=== PATIENT | male | born 1955 | race Caucasian/White ===

== ENCOUNTER 2021-05-14 12:42 | Inpatient (IN) ==
--- NOTE | 2021-05-14 13:25 | Emergency Department Note ---
Impression & Plan Acute renal failure, Acute uremia ADMIT ED Provider Note HPI: The patient is a 66-year-old gentleman with history of chronic kidney disease, presents the emergency department today with multiple complaints. Patient states that he has felt ill recently, states this has been worsening over the past several days. States he has had some sinus congestion and relatively c onsistent epistaxis over the past several days. He arrives with some cotton packing in his nose that is not blood-tinged. States he has had this in place and he has not had any active bleeding over the past several hours. Patient also states that he has had some worsening venous stasis type changes to the bilateral lower extremities, states that he feels weak. Patient is hemodynamically stable on arrival, he is otherwise in no acute distress. ROS: -General: Generalized weakness -HEENT: Recent epistaxis *10 point review systems was conducted and is otherwise negative unless stated above *Outpatient medications and allergy history reviewed PE: General: Alert, NAD HEENT: Normocephalic, atraumatic patient has cotton packing in the bilateral nares without any active bleeding there is no blood in the posterior oropharynx Eyes: Extraocular eye movement is intact, no scleral erythema Pulmonary: Clear to auscultation bilaterally, no wheezing Cardio: Regular rate and rhythm GI: Abdomen is soft, nontender : No suprapubic tenderness MSK: No evidence of trauma or malformation of the extremities, no edema palpable fistula in the left upper extremity near the left wrist with thrill Skin: No evidence of rash Neuro: Alert, no focal deficits 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 IV was established, lab work obtained that shows evidence of end-stage renal disease, patient's creatinine is in, BUN of 176, potassium is within normal limits at 4.5. EKG does not show any evidence of peaked T waves. I discussed the above findings with the patient and his at the bedside, they state that he did have a fistula placed in his left upper extremity in October in preparation for dialysis but he has not had close follow-up with his providers in the [facility] recently. I do think at this point the patient needs to initiate dialysis given his uremia and elevated creatinine in addition to his metabolic acidosis with a bicarbonate level of 7, I discussed the above findings with on-call nephrology, Dr. Dodd, he was in agreement for consultation, recommends placing the patient on a bicarbonate drip, dialysis nurse will evaluate the fistula to determine whether or not it is appropriate for access at this point. I discussed the above findings with the on-call hospitalist, Dr. Sharma, who accepted the patient to a telemetry bed for further care as well as nephrology consultation dialysis. Patient was in agreement to the above plan as was his at the bedside, patient was admitted in stable condition. He was placed on a bicarb drip at the advice of nephrology prior to admission. Critical care time: 35 minutes -Initiation of sodium bicarbonate drip for severe metabolic acidosis/end-stage kidney disease, time spent at the bedside, discussion with other physicians, arrangement of admission Diagnosis: 1. Uremia 2. Metabolic acidosis 3. Acute on chronic kidney failure, elevated creatinine 4. Generalized weakness Disposition: Admission Maynor Hwang DO Emergency Medicine Past Med/Surg History Medical History (Updated 05/14/21 @ 17:35 by Maynor Hwang DO) CKD (chronic kidney disease) Essential hypertension Macular degeneration Type 2 diabetes mellitus Surgical History (Updated 05/14/21 @ 17:30 by Giovanni Sharma) S/P arteriovenous (AV) fistula creation 10/2021 S/P rotator cuff repair LEFT shoulder Family History (Updated 05/14/21 @ 17:30 by Giovanni Sharma) Father Prostate cancer Sister Coronary heart disease Mother Breast cancer Social History (Updated 05/14/21 @ 17:31 by Giovanni Sharma) Smoking Status: Never smoker Hx Alcohol Use: Yes (stopped total consumption 2020) Alcohol type: beer Preferred Language: [place]er marital status: marital status details: 2 marriages Current Living Situation: Spouse current occupational status: retired current occupation: [employer] How many Children do You have: 1 Feels Safe at Home: Yes Allergies Allergies Allergy/AdvReac Type Severity Reaction Status Date / Time No Known Allergies Allergy Unverified 05/14/21 15:28 Home Meds Home Medications Medication Instructions Recorded Confirmed ascorbic acid (vitamin C) 1,000 mg 1 g PO DAILY 05/14/21 05/14/21 tablet aspirin 81 mg chewable tablet 81 mg PO DAILY 05/14/21 05/14/21 atorvastatin 40 mg tablet 40 mg PO DAILY 05/14/21 05/14/21 carvedilol 12.5 mg tablet 12.5 mg PO BID 05/14/21 05/14/21 cholecalciferol (vitamin D3) 125 125 mcg PO DAILY 05/14/21 05/14/21 mcg (5,000 unit) tablet clonidine HCl 0.1 mg tablet 0.1 mg PO TID 05/14/21 05/14/21 epoetin ned 10,000 unit/mL 10,000 unit SUBCUT WK 05/14/21 05/14/21 injection solution (Procrit) furosemide 40 mg tablet 40 mg PO QAM 05/14/21 05/14/21 glimepiride 2 mg tablet 2 mg PO AMPM 05/14/21 05/14/21 mecobalamin (vitamin B12) 1,000 2,500 mcg PO DAILY 05/14/21 05/14/21 mcg chewable tablet (B12 Active) metolazone 5 mg tablet 5 mg PO DAILY 05/14/21 05/14/21 milk thistle 175 mg tablet 175 mg PO DAILY 05/14/21 05/14/21 multivitamin (Multiple Vitamins) 1 tab PO DAILY 05/14/21 05/14/21 multivitamin with minerals 1 tab PO DAILY 05/14/21 05/14/21 patiromer calcium sorbitex 8.4 8.4 g PO DAILY 05/14/21 05/14/21 gram oral powder packet (Veltassa) pyridoxine (vitamin B6) 100 mg 100 mg PO DAILY 05/14/21 05/14/21 tablet (Vitamin B-6) sitagliptin 50 mg tablet (Januvia) 50 mg PO DAILY 05/14/21 05/14/21 sodium zirconium cyclosilicate 10 10 g PO QPM 05/14/21 05/14/21 gram oral powder packet (Lokelma) zinc 50 mg tablet 50 mg PO DAILY 05/14/21 05/14/21 Results & Data (ED) Vital Signs Vital Signs - 24 hr 05/14/21 12:45 05/14/21 15:30 05/14/21 16:29 Temperature 36.5 C Temperature Source Oral Pulse Rate 75 86 Pulse Rate [Right Finger] 76 Respiratory Rate 16 20 20 Blood Pressure 156/80 H Blood Pressure [Right Arm] 172/84 H Blood Pressure Mean 105 Blood Pressure Mean [Right Arm] 113 Blood Pressure Position [Right Arm] Sitting Pulse Oximetry 99 98 98 Oxygen Delivery Method Room Air Room Air Sepsis Recent Fever Within 48 Hours No Sepsis New/Unexplained Change in Mental Status No Sepsis Action Taken by Nursing No Action Required 05/14/21 17:25 Temperature Temperature Source Pulse Rate Pulse Rate [Right Finger] 74 Respiratory Rate 20 Blood Pressure Blood Pressure [Right Arm] 178/87 H Blood Pressure Mean Blood Pressure Mean [Right Arm] 117 Blood Pressure Position [Right Arm] Sitting Pulse Oximetry 98 Oxygen Delivery Method Room Air Sepsis Recent Fever Within 48 Hours Sepsis New/Unexplained Change in Mental Status Sepsis Action Taken by Nursing Laboratory Data Result diagrams: 05/14/21 14:28 05/14/21 14:28 Lab Results 05/14/21 05/14/21 05/14/21 Range/Units 14:28 14:28 14:28 WBC 9.01 (4.8-10.8) K/uL RBC 4.23 L (4.7-6.1) M/uL Hgb 11.1 L (14.0-18.0) g/dL Hct 33.9 L (42-52) % MCV 80.1 (80-100) fL MCH 26.2 (25-34) pg MCHC 32.7 (32-36) g/dL RDW Std Deviation 48.2 H (36.4-46.3) fL RDW Coeff of Adriano 16.5 H (11.5-14.5) % Plt Count 113 L (130-400) K/uL MPV 8.7 (7.4-10.4) fL Immature Gran % (Auto) 0.4 % Neut % (Auto) 86.7 % Lymph % (Auto) 8.0 % [place] % (Auto) 3.7 % Eos % (Auto) 1.1 % Baso % (Auto) 0.1 % Neut # (Auto) 7.81 H (1.4-6.5) K/uL Lymph # (Auto) 0.72 L (1.2-3.4) K/uL [place] # (Auto) 0.33 (0.11-0.59) K/uL Eos # (Auto) 0.10 (0-0.5) K/uL Baso # (Auto) 0.01 (0-0.2) K/uL Immature Gran # (Auto) 0.04 H (0.00-0.02) K/uL Platelet Estimate Decreased L (Normal) Ovalocytes 1+ Echinocytes 1+ PT 12.4 H (9.0-12.0) Seconds INR 1.2 H (0.9-1.1) APTT 35.0 H (21.0-31.0) Seconds PTT Ratio 1.3 VBG pH (7.36-7.41) VBG pCO2 (38-50) mmHg VBG pO2 mmHg VBG HCO3 mmol/L VBG O2 Saturation % VBG Base Excess mEq/L Barometric Pressure mm/Hg Sodium 138 (136-145) mmol/L Potassium 4.5 (3.5-5.1) mmol/L Chloride 110 H (98-107) mmol/L Carbon Dioxide 7 L* (21-32) mmol/L Anion Gap 21 H (3-11) BUN 176 H (6-23) mg/dl Creatinine 9.68 H* (0.6-1.4) mg/dl Est Cr Clr Drug Dosing 9.9 ml/min Est GFR ( Amer) 5.9 ml/min Est GFR (Non-Af Amer) 5.1 ml/min BUN/Creatinine Ratio 18.2 (10-20) Glucose 49 L* (70-99(Fasting)) mg/dl Calcium 6.7 L (8.5-10.1) mg/dl Total Bilirubin 0.4 (0.2-1.0) mg/dl AST 18 (13-39) U/L ALT 36 (7-52) U/L Alkaline Phosphatase 108 H (34-104) U/L Troponin I 0.06 H* (0-0.04) ng/ml Total Protein 6.5 (6.0-8.3) gm/dl Albumin 3.9 (3.4-5.0) gm/dl Globulin 2.6 (2.5-4.0) gm/dl Albumin/Globulin Ratio 1.5 (0.9-2) Lipase 471 H (11-82) U/L Urine Color Urine Appearance (Clear) Urine pH (4.5-7.5) Ur Specific [place] (1.000-1.030) Urine Protein (Negative) Urine Glucose (UA) (Negative) Urine Ketones (Negative) Urine Blood (Negative) Urine Nitrite (Negative) Urine Bilirubin (Negative) Urine Urobilinogen (Negative) Ur Leukocyte Esterase (Negative) Urine WBC (Auto) (0-5) /hpf Urine RBC (Auto) (0-4) /hpf U Hyaline Cast (Auto) (0-5) /lpf U Epithel Cells (Auto) (0-5) /lpf Urine Bacteria (Auto) (Negative) Urine Yeast 05/14/21 05/14/21 Range/Units 15:47 16:31 WBC (4.8-10.8) K/uL RBC (4.7-6.1) M/uL Hgb (14.0-18.0) g/dL Hct (42-52) % MCV (80-100) fL MCH (25-34) pg MCHC (32-36) g/dL RDW Std Deviation (36.4-46.3) fL RDW Coeff of Adriano (11.5-14.5) % Plt Count (130-400) K/uL MPV (7.4-10.4) fL Immature Gran % (Auto) % Neut % (Auto) % Lymph % (Auto) % [place] % (Auto) % Eos % (Auto) % Baso % (Auto) % Neut # (Auto) (1.4-6.5) K/uL Lymph # (Auto) (1.2-3.4) K/uL [place] # (Auto) (0.11-0.59) K/uL Eos # (Auto) (0-0.5) K/uL Baso # (Auto) (0-0.2) K/uL Immature Gran # (Auto) (0.00-0.02) K/uL Platelet Estimate (Normal) Ovalocytes Echinocytes PT (9.0-12.0) Seconds INR (0.9-1.1) APTT (21.0-31.0) Seconds PTT Ratio VBG pH 7.11 L (7.36-7.41) VBG pCO2 24 L (38-50) mmHg VBG pO2 84 mmHg VBG HCO3 8 mmol/L VBG O2 Saturation 94.4 % VBG Base Excess -20.4 mEq/L Barometric Pressure 734.6 mm/Hg Sodium (136-145) mmol/L Potassium (3.5-5.1) mmol/L Chloride (98-107) mmol/L Carbon Dioxide (21-32) mmol/L Anion Gap (3-11) BUN (6-23) mg/dl Creatinine (0.6-1.4) mg/dl Est Cr Clr Drug Dosing ml/min Est GFR ( Amer) ml/min Est GFR (Non-Af Amer) ml/min BUN/Creatinine Ratio (10-20) Glucose (70-99(Fasting)) mg/dl Calcium (8.5-10.1) mg/dl Total Bilirubin (0.2-1.0) mg/dl AST (13-39) U/L ALT (7-52) U/L Alkaline Phosphatase (34-104) U/L Troponin I (0-0.04) ng/ml Total Protein (6.0-8.3) gm/dl Albumin (3.4-5.0) gm/dl Globulin (2.5-4.0) gm/dl Albumin/Globulin Ratio (0.9-2) Lipase (11-82) U/L Urine Color Yellow Urine Appearance Clear (Clear) Urine pH 5.0 (4.5-7.5) Ur Specific [place] 1.014 (1.000-1.030) Urine Protein 3+ H (Negative) Urine Glucose (UA) Negative (Negative) Urine Ketones Negative (Negative) Urine Blood 1+ H (Negative) Urine Nitrite Negative (Negative) Urine Bilirubin Negative (Negative) Urine Urobilinogen Negative (Negative) Ur Leukocyte Esterase Negative (Negative) Urine WBC (Auto) 5-10 H (0-5) /hpf Urine RBC (Auto) 0-4 (0-4) /hpf U Hyaline Cast (Auto) 1-5 (0-5) /lpf U Epithel Cells (Auto) >30 H (0-5) /lpf Urine Bacteria (Auto) Negative (Negative) Urine Yeast Not Reportable Administered Medications Sodium Bicarbonate 150 meq/ (Dextrose) 1,150 mls @ 100 mls/hr IV .[id number] PRASHANTH Stop: 06/13/21 16:14 Last Admin: 05/14/21 16:23 Dose: 100 mls/hr Documented by: [id number] Discontinued Medications Miscellaneous (Stat Iv) 1 ea N/A NOW STA Stop: 05/14/21 15:50 Last Admin: 05/14/21 16:23 Dose: Not Given Documented by: [id number] Miscellaneous (Stat Iv) 1 ea N/A NOW STA Stop: 05/14/21 16:02 Last Admin: 05/14/21 16:23 Dose: Not Given Documented by: [id number] Imaging Data Radiologist's Impression: Chest X-Ray 05/14/21 13:23 XR chest 1V portable CLINICAL HISTORY: Atypical chest pain . Shortness of breath COMPARISON STUDY: No previous studies for comparison. FINDINGS: Lung volumes are normal. No pneumothorax or pleural effusion is present. Moderate cardiomegaly is noted without evidence for pulmonary edema. No consolidation is present. Faint calcifications project over the bilateral axilla. IMPRESSION: No acute cardiopulmonary findings. Cardiomegaly. ACT 112: Negative or not required by law. Electronically signed by: Alex Lees M.D. 05/14/2021 1:44 PM Discharge Plan Visit Data Chief Complaint: Illness Stated Complaint: NOSE BLEED, PAIN ON INSIDE OF THIGH,DIAHERRA, WEAK ED Provider: Maynor Hwang Discharge Problem: Acute renal failure, Acute uremia Forms Stand Alone Forms: My [facility] Prescriptions Prescriptions: No Action Lokelma 10 gram powder in packet 10 g PO QPM RF: 0 Januvia 50 mg tablet 50 mg PO DAILY RF: 0 glimepiride 2 mg tablet 2 mg PO AMPM RF: 0 furosemide 40 mg tablet 40 mg PO QAM RF: 0 atorvastatin 40 mg tablet 40 mg PO DAILY RF: 0 clonidine HCl 0.1 mg tablet 0.1 mg PO TID RF: 0 carvedilol 12.5 mg tablet 12.5 mg PO BID RF: 0 multivitamin [Multiple Vitamins] Tablet 1 tab PO DAILY RF: 0 Vision Multivitamin Tablet 1 tab PO DAILY RF: 0 pyridoxine (vitamin B6) [Vitamin B-6] 100 mg Tablet 100 mg PO DAILY RF: 0 B12 Active 1,000 mcg Tablet,Chewable 2,500 mcg PO DAILY RF: 0 ascorbic acid (vitamin C) 1,000 mg Tablet 1 g PO DAILY RF: 0 Procrit 10,000 unit/mL solution 10,000 unit subcut WK RF: 0 aspirin [[facility] Aspirin] 81 mg Tablet,Chewable 81 mg PO DAILY RF: 0 cholecalciferol (vitamin D3) 125 mcg (5,000 unit) Tablet 125 mcg PO DAILY RF: 0 milk thistle 175 mg Tablet 175 mg PO DAILY RF: 0 zinc 50 mg Tablet 50 mg PO DAILY RF: 0 Veltassa 8.4 gram powder in packet 8.4 g PO DAILY RF: 0 metolazone 5 mg tablet 5 mg PO DAILY RF: 0 Referrals Referrals: PCP,NO [Primary Care Provider] - Discharge Problem: Acute renal failure Qualifiers: Acute renal failure type: unspecified Qualified Code(s): N17.9 - Acute kidney failure, unspecified
--- NOTE | 2021-05-14 13:46 | XRay Report ---
XR chest 1V portable CLINICAL HISTORY: Atypical chest pain . Shortness of breath COMPARISON STUDY: No previous studies for comparison. FINDINGS: Lung volumes are normal. No pneumothorax or pleural effusion is present. Moderate cardiomeg leticia is noted without evidence for pulmonary edema. No consolidation is present. Faint calcifications project over the bilateral axilla. IMPRESSION: No acute cardiopulmonary findings. Cardiomegaly. ACT 112: Negative or not required by law. Electronically signed by: Alex Lees M.D. 05/14/2021 1:44 PM
[2021-05-14 14:39] LABS: Mean Corpuscular Hgb Conc 32.7 g/dL (32-36)
[2021-05-14 14:48] LABS: Hematocrit (blood only) 33.9 % (42-52); Hemoglobin 11.1 g/dL (14.0-18.0); Mean Corpuscular Hemoglobin 26.2 pg (25-34); Mean Corpuscular Volume 80.1 fL (80-100); RDW Coefficient of Variation 16.5 % (11.5-14.5); RDW Standard Deviation 48.2 fL (36.4-46.3); Red Blood Count 4.23 M/uL (4.7-6.1); White Blood Count 9.01 K/uL (4.8-10.8)
[2021-05-14 14:50] LABS: INR 1.2 (0.9-1.1); Partial Thromboplastin Ratio 1.3; Prothrombin Time 12.4 Seconds (9.0-12.0)
[2021-05-14 14:53] LABS: Basophils # (auto) 0.01 K/uL (0-0.2); Basophils % (auto) 0.1 %; Echinocytes 1+; Eosinophils % (auto) 1.1 %; Immature Granulocytes # (auto) 0.04 K/uL (0.00-0.02); Immature Granulocytes % (auto) 0.4 %; Lymphocytes # (auto) 0.72 K/uL (1.2-3.4); Mean Platelet Volume 8.7 fL (7.4-10.4); Monocytes # (auto) 0.33 K/uL (0.11-0.59); Monocytes % (auto) 3.7 %; Neutrophils # (auto) 7.81 K/uL (1.4-6.5); Neutrophils % (auto) 86.7 %; Ovalocytes 1+; Platelet Count 113 K/uL (130-400); Platelet Estimate Decreased (Normal)
[2021-05-14 15:15] LABS: Albumin Globulin Ratio 1.5 (0.9-2); Albumin Level 3.9 gm/dl (3.4-5.0); BUN Creatinine Ratio 18.2 (10-20); Bilirubin,Total 0.4 mg/dl (0.2-1.0); Calcium 6.7 mg/dl (8.5-10.1); Creatinine Clr Calc Pharmacy 9.9 ml/min; Est GFR (African American) 5.9 ml/min; Est GFR (Non-African American) 5.1 ml/min; Globulin 2.6 gm/dl (2.5-4.0); Potassium 4.5 mmol/L (3.5-5.1); Total Protein 6.5 gm/dl (6.0-8.3); Troponin I 0.06 ng/ml (0-0.04)
[2021-05-14] MEDS ORDERED: STAT IV STA ×2 (15:49→16:01)
[2021-05-14] MEDS ORDERED: SODIUM BICARBONATE 8.4% 150 MEQ in DEXTROSE 5% 1,000 ML IV SCH ×2 (16:00→16:15)
[2021-05-14 16:03] LABS: Base Excess VBG -20.4 mEq/L; Oxygen Saturation VBG 94.4 %; pH VBG 7.11 (7.36-7.41)
--- NOTE | 2021-05-14 16:26 | History & Physical Report ---
Date of Service May 14, 2021 Assessment & Plan (1) Acute uremia: Plan: severe uremia with resulting metabolic acidosis. fortunately patient has AV fistula in the left arm, created 10/2020. appreciate Dr Dodd's consultation and recs. dialysis staff were able to cannulate the fistula, and an HD session of 2 hours will be attempted this evening. if the session gets cut short or there are technical issues - start IV bicarbonate infusion, and consult vascular surgery in am for permcath placement. however, the hope is that the fistula is mature and will allow HD to go smoothly. he will need serial sessions of HD given the severity of his uremia. BMP am. (2) Metabolic acidosis: Plan: 2nd to acute/chronic CKD with development of ESRD. see #1 above. (3) ESRD needing dialysis: Plan: see #1 above. (4) CKD (chronic kidney disease): Plan: suspect he had stage 4 or 5 before moving from the [facility] to [place]. either way will initiate HD tonight as stated in #1 above. CKD is likely on the basis of diabetic nephropathy and/or HTN nephrosclerosis given the 3+ protein on ua. appreciate nephrology assistance. (5) Type 2 diabetes mellitus: Plan: check a1c while here. was on 2 oral agents - sulfonylurea, and januvia. both contraindicated with his ESRD. stop both meds. check BSGs ac/hs. will likely need basal-bolus insulin. (6) Essential hypertension: Plan: uncontrolled, likely due to worsening CKD / development of ESRD. BPs should improve with serial HD sessions. in meantime continue all home meds. adjust them accordingly. (7) Edema: Plan: likely due to #1. given the mild erythema of his thighs and severe thigh edema check dopplers of both legs, r/o DVT. he may have an element of cellulitis as well - see below. (8) Bilateral thigh pain: Plan: check dopplers, r/o DVT. (9) Epistaxis: Plan: 2nd to "renal platelets?" INR is 1.2. quantitatively his platelet count is satisfactory. could simply be from dryness. bactroban ointment BID to both nares. saline spray frequently. follow carefully. (10) Thrombocytopenia: Plan: check TSH, B12, folate am cbc am (11) DVT prophylaxis: Plan: if epistaxis stops and does not recur - heparin 5000 BID (12) Cellulitis and abscess of leg: Plan: he may have early cellulitis. I am not fully certain, however, as he has chronic stasis changes as well of the legs. given the pain he is having will check dopplers AND cover for cellulitis with rocephin/daptomycin. repeat exam in am. Plan: extensively updated at bedside care d/w Dr Dodd, nephrology History of Present Illness Chief Complaint: weakness, nose bleeding, diarrhea, thigh pain Primary Care Provider: NO PCP Pleasant 66yo male with CKD (stage uncertain but likely advanced), LUE AV fistula creation in 10/2020 in [place], [place], T2DM since 2003 on oral meds, and HTN presents with progressive weakness, several days of b/l nosebleeding, worsening edema with b/l thigh pain L>R, mild redness of both thighs also L>R, and a few episodes of diarrhea over the last 1-2 weeks. 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 The patient himself is retired from [employer] in the [facility]. Patient and his report worsening dyspnea, dyspnea on exertion, and fatigue over the last several weeks. He admits to not checking his BSGs but states his last HbA1c in [place] was "good" per his recollection. Allergies Allergy/AdvReac Type Severity Reaction Status Date / Time No Known Allergies Allergy Unverified 05/14/21 15:28 Home Medications Medication Instructions Recorded Confirmed Type ascorbic acid (vitamin C) 1,000 mg 1 g PO DAILY 05/14/21 05/14/21 History tablet aspirin 81 mg chewable tablet 81 mg PO DAILY 05/14/21 05/14/21 History atorvastatin 40 mg tablet 40 mg PO DAILY 05/14/21 05/14/21 History carvedilol 12.5 mg tablet 12.5 mg PO BID 05/14/21 05/14/21 History cholecalciferol (vitamin D3) 125 125 mcg PO DAILY 05/14/21 05/14/21 History mcg (5,000 unit) tablet clonidine HCl 0.1 mg tablet 0.1 mg PO TID 05/14/21 05/14/21 History epoetin ned 10,000 unit/mL 10,000 unit SUBCUT WK 05/14/21 05/14/21 History injection solution (Procrit) furosemide 40 mg tablet 40 mg PO QAM 05/14/21 05/14/21 History glimepiride 2 mg tablet 2 mg PO AMPM 05/14/21 05/14/21 History mecobalamin (vitamin B12) 1,000 2,500 mcg PO DAILY 05/14/21 05/14/21 History mcg chewable tablet (B12 Active) metolazone 5 mg tablet 5 mg PO DAILY 05/14/21 History milk thistle 175 mg tablet 175 mg PO DAILY 05/14/21 05/14/21 History multivitamin (Multiple Vitamins) 1 tab PO DAILY 05/14/21 05/14/21 History multivitamin with minerals 1 tab PO DAILY 05/14/21 05/14/21 History patiromer calcium sorbitex 8.4 8.4 g PO DAILY 05/14/21 05/14/21 History gram oral powder packet (Veltassa) pyridoxine (vitamin B6) 100 mg 100 mg PO DAILY 05/14/21 05/14/21 History tablet (Vitamin B-6) sitagliptin 50 mg tablet (Januvia) 50 mg PO DAILY 05/14/21 05/14/21 History sodium zirconium cyclosilicate 10 10 g PO QPM 05/14/21 05/14/21 History gram oral powder packet (Lokelma) zinc 50 mg tablet 50 mg PO DAILY 05/14/21 05/14/21 History Past Med/Surg History Medical History CKD (chronic kidney disease) ESRD needing dialysis Essential hypertension Macular degeneration Type 2 diabetes mellitus Surgical History S/P arteriovenous (AV) fistula creation LU - 10/2021 S/P rotator cuff repair LEFT shoulder Family History Father Prostate cancer Sister Coronary heart disease Mother Breast cancer Social History (Updated 05/14/21 @ 23:14 by Giovanni Sharma) Smoking Status: Never smoker Second Hand Exposure: Yes; Do You Dip or Chew Tobacco: No; Tobacco Cessation Education Requested by Patient: No Hx Alcohol Use: Yes (none since 2020) Alcohol type: beer Hx Substance Use: No Preferred Language: [place] Islander Communication Ability: Effective Control Chemist Required: No Beliefs That Will Affect Care: None marital status: marital status details: 2 marriages Current Living Situation: Family current occupational status: retired current occupation: [employer] How many Children do You have: 1 other: lived in [facility], moved to [place] late 2020 Feels Safe at Home: Yes Assistive Devices: Glasses Assistive Devices Comment: OTC readers Review of Systems Review of Systems: gen - no fevers, no rigors - but does feel cold chronically "for years"; no loss of appetite; no significant change in weight eyes - injections in eyes for macular degeneration HENT - no dysphagia; no sore throat neck - no pain CV - no chest pain pulm - VENEGAS but no cough GI - no abd pain, no vomiting; but has had diarrhea for a few days - makes urine 3-4 times a day musculo - c/o pain in both thighs x 3-4 days skin - chronic stasis changes/erythema b/l shins; new erythema b/l inner thighs neuro - no headache psych - denies mood changes endo - long-time diabetic but not checking BSGs Physical Exam Physical Exam: gen - no acute distress, visibly dyspneic, seems oriented eyes - PERRL, lens implants b/l mouth - MMM HENT - NC/AT, nose with dried blood anterior nares b/l but no active bleeding neck - no JVD, no goiter heart - RRR, s1 s2, 1/6 ASTON LSB lungs - decreased BS bases, otherwise CTA b/l abd - soft NT ND BS+ vascular - left distal arm fistula with +bruit, +thrill; pulses b/l feet 2+ skin - venous stasis changes b/l legs on the shins; there is mild erythema b/l thighs medially; none of the erythematous areas are warm to touch; however, the thighs are tender to palpation; no lymphangitis; scattered abrasions/tiny ulcerations on toes b/l feet ext - 2-3+ edema both thighs, 1+ edema shins/ankles neuro - strength 5/5 x 4 extremities; there is atrophy of intrinsic muscles of the space between digits 1 and 2 of b/l hands Results & Data Results & Data ([facility]) Vital Signs (Past 12 Hours) Vital Signs Temp Pulse Pulse Resp BP BP Pulse Ox 05/14/21 15:30 76 20 172/84 H 98 05/14/21 12:45 36.5 C 75 16 156/80 H 99 Laboratory Results Laboratory Results - last 24 hr 05/14/21 05/14/21 05/14/21 14:28 14:28 14:28 WBC 9.01 RBC 4.23 L Hgb 11.1 L Hct 33.9 L MCV 80.1 MCH 26.2 MCHC 32.7 RDW Std Deviation 48.2 H RDW Coeff of Adriano 16.5 H Plt Count 113 L MPV 8.7 Immature Gran % (Auto) 0.4 Neut % (Auto) 86.7 Lymph % (Auto) 8.0 Coffee % (Auto) 3.7 Eos % (Auto) 1.1 Baso % (Auto) 0.1 Neut # (Auto) 7.81 H Lymph # (Auto) 0.72 L Coffee # (Auto) 0.33 Eos # (Auto) 0.10 Baso # (Auto) 0.01 Immature Gran # (Auto) 0.04 H Platelet Estimate Decreased L Ovalocytes 1+ Echinocytes 1+ PT 12.4 H INR 1.2 H APTT 35.0 H PTT Ratio 1.3 VBG pH VBG pCO2 VBG pO2 VBG HCO3 VBG O2 Saturation VBG Base Excess Barometric Pressure Sodium 138 Potassium 4.5 Chloride 110 H Carbon Dioxide 7 L* Anion Gap 21 H BUN 176 H Creatinine 9.68 H* Est Cr Clr Drug Dosing 9.9 Est GFR ( Amer) 5.9 Est GFR (Non-Af Amer) 5.1 BUN/Creatinine Ratio 18.2 Glucose 49 L* POC Glucose Calcium 6.7 L Total Bilirubin 0.4 AST 18 ALT 36 Alkaline Phosphatase 108 H Troponin I 0.06 H* Total Protein 6.5 Albumin 3.9 Globulin 2.6 Albumin/Globulin Ratio 1.5 Lipase 471 H Urine Color Urine Appearance Urine pH Ur Specific [place] Urine Protein Urine Glucose (UA) Urine Ketones Urine Blood Urine Nitrite Urine Bilirubin Urine Urobilinogen Ur Leukocyte Esterase Urine WBC (Auto) Urine RBC (Auto) U Hyaline Cast (Auto) U Epithel Cells (Auto) Urine Bacteria (Auto) Urine Yeast SARS-CoV-2, RNA, NAAT 05/14/21 05/14/21 05/14/21 15:47 16:31 17:34 WBC RBC Hgb Hct MCV MCH MCHC RDW Std Deviation RDW Coeff of Adriano Plt Count MPV Immature Gran % (Auto) Neut % (Auto) Lymph % (Auto) Coffee % (Auto) Eos % (Auto) Baso % (Auto) Neut # (Auto) Lymph # (Auto) Coffee # (Auto) Eos # (Auto) Baso # (Auto) Immature Gran # (Auto) Platelet Estimate Ovalocytes Echinocytes PT INR APTT PTT Ratio VBG pH 7.11 L VBG pCO2 24 L VBG pO2 84 VBG HCO3 8 VBG O2 Saturation 94.4 VBG Base Excess -20.4 Barometric Pressure 734.6 Sodium Potassium Chloride Carbon Dioxide Anion Gap BUN Creatinine Est Cr Clr Drug Dosing Est GFR ( Amer) Est GFR (Non-Af Amer) BUN/Creatinine Ratio Glucose POC Glucose Calcium Total Bilirubin AST ALT Alkaline Phosphatase Troponin I Total Protein Albumin Globulin Albumin/Globulin Ratio Lipase Urine Color Yellow Urine Appearance Clear Urine pH 5.0 Ur Specific [place] 1.014 Urine Protein 3+ H Urine Glucose (UA) Negative Urine Ketones Negative Urine Blood 1+ H Urine Nitrite Negative Urine Bilirubin Negative Urine Urobilinogen Negative Ur Leukocyte Esterase Negative Urine WBC (Auto) 5-10 H Urine RBC (Auto) 0-4 U Hyaline Cast (Auto) 1-5 U Epithel Cells (Auto) >30 H Urine Bacteria (Auto) Negative Urine Yeast Not Reportable SARS-CoV-2, RNA, NAAT NEGATIVE 05/14/21 19:32 WBC RBC Hgb Hct MCV MCH MCHC RDW Std Deviation RDW Coeff of Dariano Plt Count MPV Immature Gran % (Auto) Neut % (Auto) Lymph % (Auto) Coffee % (Auto) Eos % (Auto) Baso % (Auto) Neut # (Auto) Lymph # (Auto) Coffee # (Auto) Eos # (Auto) Baso # (Auto) Immature Gran # (Auto) Platelet Estimate Ovalocytes Echinocytes PT INR APTT PTT Ratio VBG pH VBG pCO2 VBG pO2 VBG HCO3 VBG O2 Saturation VBG Base Excess Barometric Pressure Sodium Potassium Chloride Carbon Dioxide Anion Gap BUN Creatinine Est Cr Clr Drug Dosing Est GFR ( Amer) Est GFR (Non-Af Amer) BUN/Creatinine Ratio Glucose POC Glucose 129 H Calcium Total Bilirubin AST ALT Alkaline Phosphatase Troponin I Total Protein Albumin Globulin Albumin/Globulin Ratio Lipase Urine Color Urine Appearance Urine pH Ur Specific [place] Urine Protein Urine Glucose (UA) Urine Ketones Urine Blood Urine Nitrite Urine Bilirubin Urine Urobilinogen Ur Leukocyte Esterase Urine WBC (Auto) Urine RBC (Auto) U Hyaline Cast (Auto) U Epithel Cells (Auto) Urine Bacteria (Auto) Urine Yeast SARS-CoV-2, RNA, NAAT Diagnostic Findings Chest X-Ray 05/14/21 13:23 XR chest 1V portable CLINICAL HISTORY: Atypical chest pain . Shortness of breath COMPARISON STUDY: No previous studies for comparison. FINDINGS: Lung volumes are normal. No pneumothorax or pleural effusion is present. Moderate cardiomegaly is noted without evidence for pulmonary edema. No consolidation is present. Faint calcifications project over the bilateral axilla. IMPRESSION: No acute cardiopulmonary findings. Cardiomegaly. ACT 112: Negative or not required by law. Electronically signed by: Alex Lees M.D. 05/14/2021 1:44 PM EKG - my reading - NSR, RBBB, leads III/AVF with inverted T waves; anterior T wave inversions especially V3,V4,V5 Code Status & VTE Plan Code Status full code PG Care Time/CCT Total # of Minutes Spent Total Time Spent with Patient: Total time spent is greater than 50% in coordination of care (as documented) at patient's floor/unit and/or counseling patient: Coding Level of Care Code 54307 Initial Inpt Care Lvl 3 Diagnoses Metabolic acidosis E87.2 Type 2 diabetes mellitus E11.9 CKD (chronic kidney disease) N18.9 Essential hypertension I10 Edema R60.9 Bilateral thigh pain M79.651; M79.652 Epistaxis R04.0 ESRD needing dialysis N18.6; Z99.2 Acute uremia N19 Thrombocytopenia D69.6 DVT prophylaxis Z29.9 Cellulitis and abscess of leg L03.119; L02.419
[2021-05-14 17:07] LABS: Appearance Urine Clear (Clear); Bacteria Urine Automated Negative (Negative); Bilirubin Urine Negative (Negative); Blood Urine 1+ (Negative); Color Urine Yellow; Epithelial Cell Urine Auto >30 /lpf (0-5); Glucose Urine UA Negative (Negative); Ketones Urine Negative (Negative); Leukocyte Esterase Urine Negative (Negative); Nitrite Urine Negative (Negative); Protein Urine 3+ (Negative); RBC Urine Automated 0-4 /hpf (0-4); Specific Gravity Urine 1.014 (1.000-1.030); Urobilinogen Urine Negative (Negative)
[2021-05-14] MEDS ORDERED: SODIUM CHLORIDE 0.65% NA SOLN 45 ML (OCEAN) PRN (18:45)
[2021-05-14] MEDS ORDERED: SODIUM CHLORIDE 0.9% 1000ML 1,000 ML IV PRN (18:51)
[2021-05-14] MEDS: ACETAMINOPHEN 325 MG TAB PO PRN (20:10)
--- NOTE | 2021-05-14 20:15 | Nephrology Consultation ---
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 Has mature AVF but never had HD before as renal function was relatively stable during last nephrology visit few months ago. --start on HD urgently this evening with low blood flow considering significant AG metabolic acidosis and azotemia. Will slowly increase time, plan for 3 h tomorrow --check phos, may need to start on binder --no need for JAYLEN now --renal vitamin --low K diet --case management consult for out pt HD set up at [facility] --start on Amlodipine, 5 mg this evening and then continue 10 mg daily starting in am. Thank you for the consult. History of Present Illness Reason for Consultation: ESRD, gap metabolic acidosis, need to start on HD. Attending Physician: Giovanni Sharma History of Present Illness Mr. Ti Zee is a 66-year-old gentleman with PMH of advanced CKD, HTN, DM presented to ER with generalized weakness and epistaxis. Lab showed azotemia, acidosis and Nephrology was consulted for further management. EMR records were reviewrd in detail during visit. Krystal was at bedside. Bharat was originally from [facility] and recently moved to [place] to after recent chcf. He has h/o advanced CKD secondary to DM nephropathy, was following with Dr. Rosado is [facility]. Had left RC AVF placed in October 2020, now mature. He reports that he has been generally feeling weak, having pain in b/l thing area and has been having epistaxis over the past several days.He reports voiding normally, appetite decent, no significant N/V, anorexia. No SOB, CP, F/C, dysuria, hematuria.Has h/o hyperkalemia, was on Lasix, Metolazone, Lokelma. Lab showed Cr 9.8, BUN 176, bicarb 7 with AG, K 4.6, low calcium. Hb 11.1, has been on JAYLEN weekly, plt 116. BP has been high. H/O DM for almost 20 years, has high grade proteinuria. HTN for many years, currently poorly controlled, on Carvedilol, clonidine, lasix. No h/o CAD, CHF. Non smoker, quit alcohol in 2020. No f/h of CKD, ESRD. Retired, used to work at [employer]. Allergies Allergy/AdvReac Type Severity Reaction Status Date / Time No Known Allergies Allergy Unverified 05/14/21 15:28 Home Medications Medication Instructions Recorded Confirmed Type ascorbic acid (vitamin C) 1,000 mg 1 g PO DAILY 05/14/21 05/14/21 History tablet aspirin 81 mg chewable tablet 81 mg PO DAILY 05/14/21 05/14/21 History atorvastatin 40 mg tablet 40 mg PO DAILY 05/14/21 05/14/21 History carvedilol 12.5 mg tablet 12.5 mg PO BID 05/14/21 05/14/21 History cholecalciferol (vitamin D3) 125 125 mcg PO DAILY 05/14/21 05/14/21 History mcg (5,000 unit) tablet clonidine HCl 0.1 mg tablet 0.1 mg PO TID 05/14/21 05/14/21 History epoetin ned 10,000 unit/mL 10,000 unit SUBCUT WK 05/14/21 05/14/21 History injection solution (Procrit) furosemide 40 mg tablet 40 mg PO QAM 05/14/21 05/14/21 History glimepiride 2 mg tablet 2 mg PO AMPM 05/14/21 05/14/21 History mecobalamin (vitamin B12) 1,000 2,500 mcg PO DAILY 05/14/21 05/14/21 History mcg chewable tablet (B12 Active) metolazone 5 mg tablet 5 mg PO DAILY 05/14/21 History milk thistle 175 mg tablet 175 mg PO DAILY 05/14/21 05/14/21 History multivitamin (Multiple Vitamins) 1 tab PO DAILY 05/14/21 05/14/21 History multivitamin with minerals 1 tab PO DAILY 05/14/21 05/14/21 History patiromer calcium sorbitex 8.4 8.4 g PO DAILY 05/14/21 05/14/21 History gram oral powder packet (Veltassa) pyridoxine (vitamin B6) 100 mg 100 mg PO DAILY 05/14/21 05/14/21 History tablet (Vitamin B-6) sitagliptin 50 mg tablet (Januvia) 50 mg PO DAILY 05/14/21 05/14/21 History sodium zirconium cyclosilicate 10 10 g PO QPM 05/14/21 05/14/21 History gram oral powder packet (Lokelma) zinc 50 mg tablet 50 mg PO DAILY 05/14/21 05/14/21 History Patient History Medical History (Updated 05/14/21 @ 20:09 by Maggie Dodd MD) CKD (chronic kidney disease) ESRD needing dialysis Essential hypertension Macular degeneration Type 2 diabetes mellitus Surgical History (Updated 05/14/21 @ 17:30 by Giovanni Sharma) S/P arteriovenous (AV) fistula creation 10/2021 S/P rotator cuff repair LEFT shoulder Family History (Updated 05/14/21 @ 17:30 by Giovanni Sharma) Father Prostate cancer Sister Coronary heart disease Mother Breast cancer Social History (Updated 05/14/21 @ 17:31 by Giovanni Sharma) Smoking Status: Never smoker Hx Alcohol Use: Yes (stopped total consumption 2020) Alcohol type: beer Preferred Language: Vietnamese marital status: marital status details: 2 marriages Current Living Situation: Spouse current occupational status: retired current occupation: [employer] How many Children do You have: 1 Feels Safe at Home: Yes Review of Systems Review of Systems: Detail ROS was negative except mentioned in HPI. Physical Exam Constitutional: WD/WN, vitals as above no acute distress Eyes: + anicteric sclerae Neck: normal visual inspection Respiratory: no respiratory distress and no cough Auscultation: lungs clear to auscultation bilaterally Cardiovascular: Rate/Rhythm: regular rate and regular rhythm Heart Sounds: normal S1 and normal S2 Gastrointestinal (Abdomen): Inspection/Auscultation: abdomen normal to inspection and normal bowel sounds Percussion/Palpation: abdomen soft; abdomen nontender Musculoskeletal: Extremities: extremities normal to inspection Skin: + erythema (erythema in b/l leg and thigh) Neurologic: no focal motor deficits and not confused Psychiatric: Orientation: alert and oriented x 3 Affect: euthymic affect Results & Data ([facility]) Vital Signs (Past 12 Hours) Vital Signs Temp Pulse Pulse Resp BP BP Pulse Ox 05/14/21 18:45 36.4 C L 80 24 176/79 H 99 05/14/21 18:10 80 20 174/80 H 98 05/14/21 17:25 74 20 178/87 H 98 05/14/21 16:29 86 20 98 05/14/21 15:30 76 20 172/84 H 98 05/14/21 12:45 36.5 C 75 16 156/80 H 99 PG Care Time/CCT Total # of Minutes Spent Total Time Spent with Patient: Total time spent is greater than 50% in coordination of care (as documented) at patient's floor/unit and/or counseling patient: Coding Level of Care Code 26502 Office/OBS Consult Lvl 3 Diagnoses ESRD needing dialysis N18.6; Z99.2 Acute uremia N19 Metabolic acidosis E87.2 Epistaxis R04.0 Essential hypertension I10 Type 2 diabetes mellitus E11.9
[2021-05-14] MEDS ORDERED: carvediloL 12.5 MG TAB PO SCH (21:00)
[2021-05-14] MEDS ORDERED: oxyCODONE HCL IR 5 MG TAB (IMMEDIATE RELEASE) PO STA (21:07)
[2021-05-14] MEDS: cloNIDine HCL 0.1 MG TAB PO SCH (22:18)
[2021-05-14] MEDS: MUPIROCIN 2% OINT 22 GM TUBE EXT SCH (22:18)
[2021-05-15] MEDS ORDERED: DAPTOmycin 400 MG in SYRINGE 0 ML IV SCH ×2 (00:30)
[2021-05-15] MEDS: cefTRIAXone SODIUM 2,000 MG in DEXTROSE 5% 50 ML IV SCH ×2 (00:56→09:41)
[2021-05-15] MEDS: ACETAMINOPHEN 325 MG TAB PO PRN (02:51)
[2021-05-15] MEDS ORDERED: PNEUMOCOCCAL Polysaccharide Vaccine 25mcg/0.5mL vial/Syr IM ONE (05:30)
[2021-05-15 07:06] LABS: Hemoglobin 10.2 g/dL (14.0-18.0); Mean Corpuscular Hemoglobin 26.3 pg (25-34); Mean Corpuscular Volume 77.3 fL (80-100); RDW Coefficient of Variation 16.4 % (11.5-14.5); RDW Standard Deviation 46.1 fL (36.4-46.3); Red Blood Count 3.88 M/uL (4.7-6.1); White Blood Count 6.85 K/uL (4.8-10.8)
[2021-05-15 07:07] LABS: Mean Platelet Volume 10.4 fL (7.4-10.4); Platelet Count 107 K/uL (130-400)
[2021-05-15 07:08] LABS: Estimated Average Glucose 160 mg/dl; Hemoglobin A1C 7.2 % (4.5-5.6); Platelet Estimate Decreased (Normal)
[2021-05-15 07:12] LABS: BUN Creatinine Ratio 17.3 (10-20); Calcium 6.4 mg/dl (8.5-10.1); Creatinine Clr Calc Pharmacy 11.3 ml/min; Est GFR (African American) 6.9 ml/min; Est GFR (Non-African American) 5.9 ml/min; Potassium 3.2 mmol/L (3.5-5.1)
[2021-05-15 07:19] LABS: Folate (Folic Acid) > 22.30 ng/ml (>5.38)
[2021-05-15 07:20] LABS: Vitamin B12 1300 pg/ml (180-914)
--- NOTE | 2021-05-15 07:22 | Ultrasound Report ---
BILATERAL LOWER EXTREMITY VENOUS DOPPLER CLINICAL HISTORY: b/l thigh pain, check for DVT COMPARISON STUDY: No previous studies for comparison. TECHNIQUE: Sonography of the deep venous system of the bilateral lower extremities was performed. Co mpression and augmentation were evaluated. FINDINGS: The bilateral common femoral, superficial femoral and popliteal veins were compressible. A ugmentation was normal. Flow was shown within the deep calf vessels. IMPRESSION: No evidence of deep venous thrombus within the bilateral lower extremities. ACT 112: Negative or not required by law. Electronically signed by: Alex Lees M.D. 05/15/2021 7:20 AM
[2021-05-15] MEDS ORDERED: POTASSIUM CHLORIDE CRTAB 20 MEQ TABCR PO STA (08:08)
[2021-05-15] MEDS: INSULIN ASPART PER UNIT SC SCH ×4 (08:57→20:17)
[2021-05-15] MEDS ORDERED: EPOETIN ALFA 20,000 UNITS/ML VIAL IV SCH (09:00)
[2021-05-15] MEDS ORDERED: NON-FORMULARY MEDICATION (Multivitamin With Minerals Tablet) PO SCH (09:00)
[2021-05-15] MEDS: cloNIDine HCL 0.1 MG TAB PO SCH ×3 (09:39→20:18)
[2021-05-15] MEDS: CYANOCOBALAMIN (B-12) 2,500 MCG TABLET SL SCH (09:40)
[2021-05-15] MEDS: ZINC SULFATE 220 MG CAPSULE PO SCH (09:40)
[2021-05-15] MEDS: PYRIDOXINE HCL 50 MG TAB PO SCH (09:40)
[2021-05-15] MEDS: MULTIVITAMIN TAB PO SCH (09:40)
[2021-05-15] MEDS: CHOLECALCIFEROL 5,000 UNITS 125 MCG TAB PO SCH (09:40)
[2021-05-15] MEDS: DEXTROSE 5% 500 ML IV SCH (09:43)
[2021-05-15] MEDS: NEPHROCAPS PO SCH (10:25)
[2021-05-15] MEDS: carvediloL 6.25 MG TAB PO SCH ×2 (10:25→20:18)
[2021-05-15] MEDS: MUPIROCIN 2% OINT 22 GM TUBE EXT SCH ×2 (10:26→20:19)
--- NOTE | 2021-05-15 11:19 | Nephrology Progress Note ---
Date of Service May 15, 2021 Assessment & Plan (1) ESRD needing dialysis: (2) Acute uremia: (3) Metabolic acidosis: (4) Epistaxis: (5) Essential hypertension: (6) Type 2 diabetes mellitus: Plan: ESRD secondary to DM nephropathy, admitted with azotemia and uremia. Has mature AVF but never had HD before as renal function was relatively stable during last nephrology visit few months ago. Started on HD urgently on admission on 05/14/2021 considering significant AG metabolic acidosis and azotemia. Feeling much better this morning, asymptomatic. Acidosis improving. -- 2nd dialysis treatment today for 3 hours -- Epogen 88966 units x 1 dose today. --renal vitamin --low K diet --case management consulted for out pt HD set up at [facility] [address] -- Continue Amlodipine 10 mg daily. Admission and Anticipated Discharge Date Admission Date: May 14, 2021 Review of Systems Review of Systems: Detail ROS was negative except mentioned above Physical Exam Constitutional: WD/WN, vitals as above no acute distress Respiratory: no respiratory distress Auscultation: lungs clear to auscultation bilaterally Cardiovascular: Rate/Rhythm: regular rate and regular rhythm Heart Sounds: normal S1 and normal S2 Skin: + erythema (erythema in b/l leg and thigh) Neurologic: no focal motor deficits and not confused Psychiatric: Orientation: alert and oriented x 3 Affect: euthymic affect Results & Data ([facility]) Vital Signs (Past 12 Hours) Vital Signs Temp Pulse Pulse Pulse Resp BP Pulse Ox 05/15/21 11:09 36.7 C 74 20 137/48 L 97 05/15/21 10:53 37.5 C 74 18 144/62 H 98 05/15/21 07:00 33.6 C L 71 16 182/100 H 98 05/15/21 03:29 36.4 C L 71 18 169/91 H 97 05/15/21 01:26 81 05/14/21 23:37 36.8 C 82 18 185/81 H 97 PG Care Time/CCT Total # of Minutes Spent Total Time Spent with Patient: Total time spent is greater than 50% in coordination of care (as documented) at patient's floor/unit and/or counseling patient: Coding Level of Care Code 44969 Subseq Hosp Care Lvl 3 Diagnoses ESRD needing dialysis N18.6; Z99.2 Acute uremia N19 Metabolic acidosis E87.2 Epistaxis R04.0 Essential hypertension I10 Type 2 diabetes mellitus E11.9
--- NOTE | 2021-05-15 20:13 | Hospitalist Progress Note ---
Date of Service May 15, 2021 Assessment & Plan (1) Acute uremia: Plan: Presented with severe uremia with resulting metabolic acidosis. fortunately patient had AV fistula in the left arm, created 10/2020. HD initiated - first session evening of 05/14. to have 2nd treatment today. fistula working well. volume status improved today; BUN/Cr improved again. BMP in am. appreciate Dr Dodd's assistance. (2) Metabolic acidosis: Plan: 2nd to acute/chronic CKD with development of ESRD. see #1 above. improving. (3) ESRD needing dialysis: Plan: see #1 above. tolerating HD thus far. (4) CKD (chronic kidney disease): Plan: suspect he had stage 4 or 5 before moving from the [facility] to [place]. either way HD initiated yesterday 2nd to ESRD development and acute uremia. CKD is likely on the basis of diabetic nephropathy and/or HTN nephrosclerosis given the 3+ protein on ua. appreciate nephrology assistance. (5) Type 2 diabetes mellitus: Plan: a1c 7.2%. was on 2 oral agents - sulfonylurea, and januvia. both contraindicated with his ESRD. stopped both meds. he continues with LOWS - likely due to sulfonylurea. this will linger in his system for another 2 days or so as it is renally excreted. thus, he likely will remain low or low-normal. start D5W at 20cc/hr to maintain euglycemia. likely to need this for at least 1-2 days. (6) Essential hypertension: Plan: uncontrolled, likely due to worsening CKD / development of ESRD. increase coreg to 18.75mg BID. follow response. (7) Edema: Plan: due to #1. bl venous duplex studies of legs NEGATIVE for DVT. edema improving with HD. (8) Bilateral thigh pain: Plan: no evidence of DVT. the edema was sever which can cause pain. ?cellulitis may be contributing as well. (9) Epistaxis: Plan: 2nd to "renal platelets?" INR was 1.2. quantitatively his platelet count is satisfactory. could simply be from dryness. bactroban ointment BID to both nares. saline spray frequently. follow carefully. fortunately no recurrence while here. (10) Thrombocytopenia: Plan: uncertain cause. TSH, B12, folate all normal. consumptive in setting of recent epistaxis? trend for now. (11) DVT prophylaxis: Plan: if epistaxis stops and does not recur - heparin 5000 BID (12) Cellulitis and abscess of leg: Plan: day #2 of rocephin/daptomycin. I was uncertain if he indeed had cellulitis of both legs at admission. certainly there is less erythema b/l today thus will cover for this possibility of cellulitis with 7days of IV/PO abx. reassess in am. Plan: extensively updated at bedside again today care d/w Dr Dodd, nephrology diarrhea - check biofire GI panel Admission and Anticipated Discharge Date Admission Date: May 14, 2021 Subjective tele overnight wnl cont with loose stools/diarrhea present for several days cont with mild L thigh pain but improved from admission erythema on both legs also improved tolerated brief session of HD yesterday evening to have HD again today x 3 hours at bedside - questions answered regarding care plan and aftercare patient overall feels better today Review of Systems Review of Systems: gen - no fevers, appetite ok, some fatigue cv - no chest pain pulm - dyspnea improved today GI - no pain but diarrhea remains HENT - no further epistaxis Physical Exam Physical Exam: gen - no acute distress, looks much better today; dyspnea he had had yesterday is resolved neck - no JVD mouth - MMM heart - RRR, s1 s2, 1/6 ASTON LSB lungs - decreased BS bases, otherwise CTA b/l abd - soft NT ND BS+ skin - venous stasis changes b/l legs on the shins; there is mild erythema b/l thighs medially; there is mild pink skin on shins; the areas of erythema in the thighs/shins in comparison to yesterday is much better today ext - 2+ edema both thighs, <1+ edema shins/ankles -- overall improved edema today Results & Data Results & Data ([facility]) Vital Signs (Past 12 Hours) Vital Signs Temp Pulse Pulse Resp BP Pulse Ox 05/15/21 19:47 36.6 C 72 18 166/78 H 97 05/15/21 15:05 36.7 C 74 17 163/80 H 98 05/15/21 11:09 36.7 C 74 20 137/48 L 97 05/15/21 10:53 37.5 C 74 18 144/62 H 98 Laboratory Results Laboratory Results - last 24 hr 05/15/21 05/15/21 05/15/21 05:58 05:58 05:58 WBC 6.85 RBC 3.88 L Hgb 10.2 L Hct 30.0 L MCV 77.3 L MCH 26.3 MCHC 34.0 RDW Std Deviation 46.1 RDW Coeff of Adriano 16.4 H Plt Count 107 L MPV 10.4 Platelet Estimate Decreased L Sodium 140 Potassium 3.2 L D Chloride 108 H Carbon Dioxide 13 L Anion Gap 19 H BUN 147 H D Creatinine 8.52 H* D Est Cr Clr Drug Dosing 11.3 Est GFR ( Amer) 6.9 Est GFR (Non-Af Amer) 5.9 BUN/Creatinine Ratio 17.3 Glucose 43 L* POC Glucose Estimat Average Glucose 160 Hemoglobin A1c 7.2 H Calcium 6.4 L Vitamin B12 Folate TSH Hepatitis B Ab, Qual Hep Bs Antigen Hep B Core IgM Ab 05/15/21 05/15/21 05/15/21 05:58 05:58 07:18 WBC RBC Hgb Hct MCV MCH MCHC RDW Std Deviation RDW Coeff of Adriano Plt Count MPV Platelet Estimate Sodium Potassium Chloride Carbon Dioxide Anion Gap BUN Creatinine Est Cr Clr Drug Dosing Est GFR ( Amer) Est GFR (Non-Af Amer) BUN/Creatinine Ratio Glucose POC Glucose 54 L* Estimat Average Glucose Hemoglobin A1c Calcium Vitamin B12 1300 H Folate > 22.30 TSH 1.699 Hepatitis B Ab, Qual Hep Bs Antigen Hep B Core IgM Ab 05/15/21 05/15/21 05/15/21 07:19 07:39 08:11 WBC RBC Hgb Hct MCV MCH MCHC RDW Std Deviation RDW Coeff of Adriano Plt Count MPV Platelet Estimate Sodium Potassium Chloride Carbon Dioxide Anion Gap BUN Creatinine Est Cr Clr Drug Dosing Est GFR ( Amer) Est GFR (Non-Af Amer) BUN/Creatinine Ratio Glucose POC Glucose 58 L* 60 L* 84 Estimat Average Glucose Hemoglobin A1c Calcium Vitamin B12 Folate TSH Hepatitis B Ab, Qual Hep Bs Antigen Hep B Core IgM Ab 05/15/21 05/15/21 05/15/21 11:11 11:22 11:31 WBC RBC Hgb Hct MCV MCH MCHC RDW Std Deviation RDW Coeff of Adriano Plt Count MPV Platelet Estimate Sodium Potassium Chloride Carbon Dioxide Anion Gap BUN Creatinine Est Cr Clr Drug Dosing Est GFR ( Amer) Est GFR (Non-Af Amer) BUN/Creatinine Ratio Glucose POC Glucose 162 H Estimat Average Glucose Hemoglobin A1c Calcium Vitamin B12 Folate TSH Hepatitis B Ab, Qual Pending Hep Bs Antigen Pending Hep B Core IgM Ab Pending 05/15/21 05/15/21 16:10 20:05 WBC RBC Hgb Hct MCV MCH MCHC RDW Std Deviation RDW Coeff of Adriano Plt Count MPV Platelet Estimate Sodium Potassium Chloride Carbon Dioxide Anion Gap BUN Creatinine Est Cr Clr Drug Dosing Est GFR ( Amer) Est GFR (Non-Af Amer) BUN/Creatinine Ratio Glucose POC Glucose 128 H 103 H Estimat Average Glucose Hemoglobin A1c Calcium Vitamin B12 Folate TSH Hepatitis B Ab, Qual Hep Bs Antigen Hep B Core IgM Ab PG Care Time/CCT Total # of Minutes Spent Total Time Spent with Patient: Total time spent is greater than 50% in coordination of care (as documented) at patient's floor/unit and/or counseling patient: Coding Level of Care Code 00281 Subseq Hosp Care Lvl 3 Diagnoses Acute uremia N19 Metabolic acidosis E87.2 ESRD needing dialysis N18.6; Z99.2 CKD (chronic kidney disease) N18.9 Type 2 diabetes mellitus E11.9 Essential hypertension I10 Edema R60.9 Bilateral thigh pain M79.651; M79.652 Epistaxis R04.0 Thrombocytopenia D69.6 DVT prophylaxis Z29.9 Cellulitis and abscess of leg L03.119; L02.419
[2021-05-15] MEDS: ADVANCED PROBIOTIC 1250 MG CAPSULE PO SCH (20:18)
--- NOTE | 2021-05-15 21:02 | Electrocardiogram Report ---
Test Reason : Blood Pressure : / mmHG Vent. Rate : 073 BPM Atrial Rate : 073 BPM P-R Int : 200 ms QRS Dur : 170 ms QT Int : 506 ms P-R-T Axes : 073 -13 -66 degrees QTc Int : 557 ms Normal sinus rhythm Right bundle branch block Abnormal ECG No previous ECGs available Confirmed by Nabeel Polanco ([id number]) on 05/15/2021 9:01:52 PM Referred By: REFERRED SELF Confirmed By:Nabeel Polanco
[2021-05-15 22:36] LABS: Adenovirus F 40/41 PCR Not Detected (NotDetected); Astrovirus PCR Not Detected (NotDetected); Campylobacter PCR Not Detected (NotDetected); Clostridium diff Toxin A/B PCR Not Detected (NotDetected); Cryptosporidium PCR Not Detected (NotDetected); Cyclospora cayetanensis PCR Not Detected (NotDetected); Entamoeba histolytica PCR Not Detected (NotDetected); Enteroaggregative E.coli(EAEC) Not Detected (NotDetected); Enteropathogenic E.coli (EPEC) Not Detected (NotDetected); Enterotoxigenic E.coli (ETEC) Not Detected (NotDetected); Giardia lamblia PCR Not Detected (NotDetected); Norovirus GI/GII PCR Not Detected (NotDetected); Plesiomonas shigelloides PCR Not Detected (NotDetected); Rotavirus A PCR Not Detected (NotDetected); Salmonella PCR Not Detected (NotDetected); Sapovirus PCR Not Detected (NotDetected); Shiga-like Toxin E.coli (STEC) Not Detected (NotDetected); Shigella/Enteroinvasive E.coli Not Detected (NotDetected); Vibrio cholerae PCR Not Detected (NotDetected); Vibrio species PCR Not Detected (NotDetected); Yersinia enterocolitica PCR Not Detected (NotDetected)
[2021-05-16 07:30] LABS: Mean Corpuscular Hgb Conc 33.2 g/dL (32-36)
[2021-05-16 07:42] LABS: Hematocrit (blood only) 29.8 % (42-52); Hemoglobin 9.9 g/dL (14.0-18.0); Mean Corpuscular Hemoglobin 25.8 pg (25-34); Mean Corpuscular Volume 77.8 fL (80-100); RDW Coefficient of Variation 16.5 % (11.5-14.5); RDW Standard Deviation 47.1 fL (36.4-46.3); Red Blood Count 3.83 M/uL (4.7-6.1); White Blood Count 7.97 K/uL (4.8-10.8)
[2021-05-16 07:54] LABS: Mean Platelet Volume 9.7 fL (7.4-10.4); Platelet Count 114 K/uL (130-400); Platelet Estimate Decreased (Normal)
[2021-05-16] MEDS: ADVANCED PROBIOTIC 1250 MG CAPSULE PO SCH (07:58)
[2021-05-16] MEDS: carvediloL 6.25 MG TAB PO SCH (07:58)
[2021-05-16] MEDS: MUPIROCIN 2% OINT 22 GM TUBE EXT SCH ×2 (07:58→21:21)
[2021-05-16] MEDS: MULTIVITAMIN TAB PO SCH (07:59)
[2021-05-16] MEDS: CYANOCOBALAMIN (B-12) 2,500 MCG TABLET SL SCH (07:59)
[2021-05-16] MEDS: cloNIDine HCL 0.1 MG TAB PO SCH ×3 (07:59→21:14)
[2021-05-16] MEDS: ZINC SULFATE 220 MG CAPSULE PO SCH (07:59)
[2021-05-16] MEDS: PYRIDOXINE HCL 50 MG TAB PO SCH (08:00)
[2021-05-16] MEDS: NEPHROCAPS PO SCH (08:00)
[2021-05-16] MEDS: CHOLECALCIFEROL 5,000 UNITS 125 MCG TAB PO SCH (08:00)
[2021-05-16] MEDS: INSULIN ASPART PER UNIT SC SCH ×4 (08:08→21:21)
[2021-05-16] MEDS: cefTRIAXone SODIUM 2,000 MG in DEXTROSE 5% 50 ML IV SCH (08:08)
[2021-05-16 08:42] LABS: Albumin Level 3.5 gm/dl (3.4-5.0); BUN Creatinine Ratio 16.3 (10-20); Calcium 6.2 mg/dl (8.5-10.1); Creatinine Clr Calc Pharmacy 10.2 ml/min; Est GFR (African American) 6.1 ml/min; Est GFR (Non-African American) 5.3 ml/min; Ferritin 29.8 ng/ml (8-388); Phosphorus 11.4 mg/dl (2.5-4.9)
[2021-05-16 08:43] LABS: Potassium 4.1 mmol/L (3.5-5.1)
--- NOTE | 2021-05-16 10:57 | Nephrology Progress Note ---
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 Has mature AVF but never had HD before as renal function was relatively stable during last nephrology visit few months ago. Started on HD urgently on admission on 05/14/2021 considering significant AG metabolic acidosis and azotemia. Feeling much better this morning, asymptomatic. Acidosis improving. -- 2nd dialysis treatment today for 3 hours -- Epogen 77858 units x 1 dose today. --renal vitamin --low K diet --case management consulted for out pt HD set up at [facility] --Continue Amlodipine 10 mg daily. --can be discharged when out pt HD set up. Admission and Anticipated Discharge Date Admission Date: May 14, 2021 Subjective Bharat was seen while on HD, tolerating HD, denies any concerns. Review of Systems Review of Systems: Detail ROS was negative except mentioned above Physical Exam Constitutional: WD/WN, vitals as above no acute distress Respiratory: no respiratory distress Auscultation: lungs clear to auscultation bilaterally Cardiovascular: Rate/Rhythm: regular rate and regular rhythm Heart Sounds: normal S1 and normal S2 Skin: + erythema (erythema in b/l leg and thigh) Neurologic: no focal motor deficits and not confused Psychiatric: Orientation: alert and oriented x 3 Affect: euthymic affect Results & Data ([facility]) Vital Signs (Past 12 Hours) Vital Signs Temp Pulse Pulse Pulse Resp BP BP 05/16/21 10:15 77 167/83 H 05/16/21 09:45 72 170/93 H 05/16/21 09:15 77 171/98 H 05/16/21 08:58 36.8 C 77 05/16/21 07:40 36.5 C 70 18 165/85 H 05/16/21 03:50 36.6 C 72 18 159/82 H 05/15/21 23:59 72 05/15/21 23:04 36.9 C 75 18 138/71 Pulse Ox 05/16/21 10:15 05/16/21 09:45 05/16/21 09:15 05/16/21 08:58 05/16/21 07:40 98 03/17/22 03:50 98 05/15/21 23:59 05/15/21 23:04 99 PG Care Time/CCT Total # of Minutes Spent Total Time Spent with Patient: Total time spent is greater than 50% in coordination of care (as documented) at patient's floor/unit and/or counseling patient: Coding Level of Care Code 87495 Subseq Hosp Care Lvl 2 Diagnoses ESRD needing dialysis N18.6; Z99.2 Acute uremia N19 Metabolic acidosis E87.2 Epistaxis R04.0 Essential hypertension I10 Type 2 diabetes mellitus E11.9
[2021-05-16] MEDS ORDERED: EPOETIN ALFA 20,000 UNITS/ML VIAL IV SCH (11:00)
[2021-05-16 12:02] LABS: HBSAG NON-REACTIVE (NON-REACTIVE); Hepatitis B Core Antibody IgM NON-REACTIVE (NON-REACTIVE)
[2021-05-16] MEDS: amLODIPine BESYLATE 5 MG TAB PO SCH (14:15)
[2021-05-16] MEDS: ONDANSETRON INJ 2 MG/ML 2 ML VIAL IV PRN ×2 (16:21→20:07)
[2021-05-16] MEDS: carvediloL 25 MG TAB PO SCH (17:37)
[2021-05-16] MEDS: SEVELAMER HCL 800 MG TABLET PO SCH (17:37)
[2021-05-16] MEDS: PANTOprazole 40 MG TAB PO SCH (17:38)
[2021-05-16] MEDS ORDERED: hydrALAZINE HCL 20 MG/ML VIAL IV STA (19:52)
--- NOTE | 2021-05-16 20:47 | Hospitalist Progress Note ---
Date of Service May 16, 2021 Assessment & Plan (1) Acute uremia: Plan: Presented with severe uremia with resulting metabolic acidosis. fortunately patient had AV fistula in the left arm, created 10/2020. HD initiated - first session evening of 05/14. attempts at HD yesterday not successful but able to have 3 hour treatment today. to have HD tomorrow. BUN/Cr improved but still very high. BMP in am. appreciate Dr Dodd's assistance. set up for [place] [facility] on Thursday of next week; will have M/W/F schedule. start sevelamer TID w/ meals for high phos. (2) Metabolic acidosis: Plan: 2nd to acute/chronic CKD with development of ESRD. see #1 above. improving albeit slowly. (3) ESRD needing dialysis: Plan: see #1 above. tolerating HD thus far. (4) CKD (chronic kidney disease): Plan: suspect he had stage 4 or 5 before moving from the [facility] to [place]. either way HD initiated day of admission 2nd to ESRD development and acute uremia. CKD is likely on the basis of diabetic nephropathy and/or HTN nephrosclerosis given the 3+ protein on ua. appreciate nephrology assistance. (5) Type 2 diabetes mellitus: Plan: a1c 7.2%. was on 2 oral agents - sulfonylurea, and januvia. both contraindicated with his ESRD. stopped both meds. he has had several LOWS since admission - likely due to sulfonylurea. this will linger in his system for another day or so as it is renally excreted. thus, he likely will remain low or low-normal. cont D5W but lower to 10cc/hr to maintain euglycemia. probably can stop tomorrow (6) Essential hypertension: Plan: uncontrolled, likely due to worsening CKD / development of ESRD. and I suspect he has had [id number] BPs chronically hence the high- dose of clonidine. increased coreg to 18.75mg BID previously; BPs still very high. increase coreg again to 25mg BID. amlodipine added by Dr Dodd this admission as well. if he needs additional BP agent can consider imdur, hydralazine, etc. follow response. (7) Edema: Plan: due to #1. bl venous duplex studies of legs NEGATIVE for DVT. edema will improve with HD. (8) Bilateral thigh pain: Plan: no evidence of DVT. the edema was severe which can cause pain. ?cellulitis may be contributing as well. (9) Epistaxis: Plan: 2nd to "renal platelets?" INR was 1.2. quantitatively his platelet count is satisfactory. could simply be from dryness. bactroban ointment BID to both nares. saline spray frequently. follow carefully. fortunately no recurrence while here. (10) Thrombocytopenia: Plan: uncertain cause. TSH, B12, folate all normal. consumptive in setting of recent epistaxis? trend for now. mildly low but stable. (11) DVT prophylaxis: Plan: if epistaxis does not recur - heparin 5000 BID (12) Cellulitis and abscess of leg: Plan: day #3 of rocephin/daptomycin. I was uncertain if he indeed had cellulitis of both legs at admission but the legs clearly look better today. stop daptomycin. cont rocephin. change to PO meds next 1-2 days. (13) Hyperphosphatemia associated with renal failure: Plan: start sevelamer TID with meals as per recommendation from Dr Dodd (14) Hypocalcemia due to chronic kidney disease: Plan: trend treat high phosphorus Plan: extensively updated at bedside once again today care d/w Dr Dodd, nephrology to have HD again tomorrow diarrhea - biofire GI panel fully negative etiology? obtain PT consult while here Admission and Anticipated Discharge Date Admission Date: May 14, 2021 Subjective tele overnight wnl attempts at HD were unsuccessful yesterday but tolerated HD today x 3 hours, 1 L UF removed following HD he attempted to eat lunch, had immediate nausea with the first few bites, then had emesis he denies abdominal pain he continues with loose stool at bedside, numerous questions answered still with edema and mild b/l thigh pain - worse on left - but not as tender and erythema of b/l shins and b/l thighs has improved from admission he did not sleep well last pm he is very tired today Review of Systems Review of Systems: gen - no fevers cv - no chest pain pulm - no dyspnea GI - no pain Physical Exam Physical Exam: gen - no acute distress, looks tired; no dyspnea neck - no JVD mouth - MMM heart - RRR, s1 s2 lungs - decreased BS bases, otherwise CTA b/l abd - soft NT ND BS+ skin - venous stasis changes b/l legs on the shins; there is mild erythema b/l thighs medially but more faint today; there is mild pink skin on shins -- these areas were very red at time of admission; scattered areas of scabbed ulcers, abrasions, etc - unchanged ext - 2+ edema both thighs - improved; trace edema ankles - improved; pulses b/l feet 2+ Results & Data Results & Data ([facility]) Vital Signs (Past 12 Hours) Vital Signs Temp Pulse Pulse Pulse Resp BP BP 05/16/21 19:17 36.6 C 73 18 195/82 H 05/16/21 18:35 188/87 H 05/16/21 18:00 05/16/21 15:28 36.7 C 80 18 211/91 H 05/16/21 12:18 36.6 C 90 189/80 H 05/16/21 11:55 36.6 C 74 18 189/92 H 05/16/21 11:45 74 189/92 H 05/16/21 11:15 73 182/89 H 05/16/21 10:45 73 175/90 H 05/16/21 10:15 77 167/83 H 05/16/21 09:45 72 170/93 H 05/16/21 09:15 77 171/98 H 05/16/21 08:58 36.8 C 77 Pulse Ox Pulse Ox 05/16/21 19:17 95 05/16/21 18:35 05/16/21 18:00 98 05/16/21 15:28 98 05/16/21 12:18 05/16/21 11:55 05/16/21 11:45 05/16/21 11:15 05/16/21 10:45 05/16/21 10:15 05/16/21 09:45 05/16/21 09:15 05/16/21 08:58 Laboratory Results Laboratory Results - last 24 hr 05/15/21 05/15/21 05/16/21 11:22 20:40 06:39 WBC 7.97 RBC 3.83 L Hgb 9.9 L Hct 29.8 L MCV 77.8 L MCH 25.8 MCHC 33.2 RDW Std Deviation 47.1 H RDW Coeff of Adriano 16.5 H Plt Count 114 L MPV 9.7 Platelet Estimate Decreased L Sodium Potassium Chloride Carbon Dioxide Anion Gap BUN Creatinine Est Cr Clr Drug Dosing Est GFR ( Amer) Est GFR (Non-Af Amer) BUN/Creatinine Ratio Glucose POC Glucose Calcium Phosphorus Iron Transferrin Ferritin Albumin PTH Intact Stl C. cayetanensis PCR Not Detected Stool Rotavirus A PCR Not Detected Stl Adenov F 40/41 PCR Not Detected Stool Astrovirus (PCR) Not Detected Stool Campylobacter PCR Not Detected Stl C. diff Tox A/B PCR Not Detected Stool Cryptosporidium PCR Not Detected Stl E.coli Shiga Tox PCR Not Detected Stl Enterotoxigenic E PCR Not Detected Stool EPEC (PCR) Not Detected Stool EAEC (PCR) Not Detected Stl E. histolytica PCR Not Detected Stool Giardia Lamblia PCR Not Detected Stool Salmonella PCR Not Detected Stool Sapovirus (PCR) Not Detected Stl P. shigelloides PCR Not Detected Stl Shigella/EIEC PCR Not Detected St Y.enterocolitica PCR Not Detected Stool Vibrio (PCR) Not Detected Stl Vibrio cholerae PCR Not Detected Stl Norovirus GI/GII PCR Not Detected Hep Bs Antigen NON-REACTIVE Hep B Core IgM Ab NON-REACTIVE 05/16/21 05/16/21 05/16/21 06:39 06:39 07:16 WBC RBC Hgb Hct MCV MCH MCHC RDW Std Deviation RDW Coeff of Adriano Plt Count MPV Platelet Estimate Sodium 137 Potassium 4.1 D Chloride 106 Carbon Dioxide 11 L Anion Gap 20 H BUN 153 H Creatinine 9.36 H* D Est Cr Clr Drug Dosing 10.2 Est GFR ( Amer) 6.1 Est GFR (Non-Af Amer) 5.3 BUN/Creatinine Ratio 16.3 Glucose 88 POC Glucose 103 H Calcium 6.2 L Phosphorus 11.4 H Iron 32 L Transferrin 162 L Ferritin 29.8 Albumin 3.5 PTH Intact 984.4 H Stl C. cayetanensis PCR Stool Rotavirus A PCR Stl Adenov F 40/41 PCR Stool Astrovirus (PCR) Stool Campylobacter PCR Stl C. diff Tox A/B PCR Stool Cryptosporidium PCR Stl E.coli Shiga Tox PCR Stl Enterotoxigenic E PCR Stool EPEC (PCR) Stool EAEC (PCR) Stl E. histolytica PCR Stool Giardia Lamblia PCR Stool Salmonella PCR Stool Sapovirus (PCR) Stl P. shigelloides PCR Stl Shigella/EIEC PCR St Y.enterocolitica PCR Stool Vibrio (PCR) Stl Vibrio cholerae PCR Stl Norovirus GI/GII PCR Hep Bs Antigen Hep B Core IgM Ab 05/16/21 05/16/21 05/16/21 11:01 12:22 16:24 WBC RBC Hgb Hct MCV MCH MCHC RDW Std Deviation RDW Coeff of Adriano Plt Count MPV Platelet Estimate Sodium Potassium Chloride Carbon Dioxide Anion Gap BUN Creatinine Est Cr Clr Drug Dosing Est GFR ( Amer) Est GFR (Non-Af Amer) BUN/Creatinine Ratio Glucose POC Glucose 118 H 87 100 H Calcium Phosphorus Iron Transferrin Ferritin Albumin PTH Intact Stl C. cayetanensis PCR Stool Rotavirus A PCR Stl Adenov F PCR Stool Astrovirus (PCR) Stool Campylobacter PCR Stl C. diff Tox A/B PCR Stool Cryptosporidium PCR Stl E.coli Shiga Tox PCR Stl Enterotoxigenic E PCR Stool EPEC (PCR) Stool EAEC (PCR) Stl E. histolytica PCR Stool Giardia Lamblia PCR Stool Salmonella PCR Stool Sapovirus (PCR) Stl P. shigelloides PCR Stl Shigella/EIEC PCR St Y.enterocolitica PCR Stool Vibrio (PCR) Stl Vibrio cholerae PCR Stl Norovirus GI/GII PCR Hep Bs Antigen Hep B Core IgM Ab 05/16/21 20:11 WBC RBC Hgb Hct MCV MCH MCHC RDW Std Deviation RDW Coeff of Adriano Plt Count MPV Platelet Estimate Sodium Potassium Chloride Carbon Dioxide Anion Gap BUN Creatinine Est Cr Clr Drug Dosing Est GFR ( Amer) Est GFR (Non-Af Amer) BUN/Creatinine Ratio Glucose POC Glucose 135 H Calcium Phosphorus Iron Transferrin Ferritin Albumin PTH Intact Stl C. cayetanensis PCR Stool Rotavirus A PCR Stl Adenov F PCR Stool Astrovirus (PCR) Stool Campylobacter PCR Stl C. diff Tox A/B PCR Stool Cryptosporidium PCR Stl E.coli Shiga Tox PCR Stl Enterotoxigenic E PCR Stool EPEC (PCR) Stool EAEC (PCR) Stl E. histolytica PCR Stool Giardia Lamblia PCR Stool Salmonella PCR Stool Sapovirus (PCR) Stl P. shigelloides PCR Stl Shigella/EIEC PCR St Y.enterocolitica PCR Stool Vibrio (PCR) Stl Vibrio cholerae PCR Stl Norovirus GI/GII PCR Hep Bs Antigen Hep B Core IgM Ab PG Care Time/CCT Total # of Minutes Spent Total Time Spent with Patient: Total time spent is greater than 50% in coordination of care (as documented) at patient's floor/unit and/or counseling patient: Coding Level of Care Code 69532 Subseq Hosp Care Lvl 3 Diagnoses Acute uremia N19 Metabolic acidosis E87.2 ESRD needing dialysis N18.6; Z99.2 CKD (chronic kidney disease) N18.9 Type 2 diabetes mellitus E11.9 Essential hypertension I10 Edema R60.9 Bilateral thigh pain M79.651; M79.652 Epistaxis R04.0 Thrombocytopenia D69.6 DVT prophylaxis Z29.9 Cellulitis and abscess of leg L03.119; L02.419 Hyperphosphatemia associated with renal failure E83.39; N19 Hypocalcemia due to chronic kidney disease E83.51; N18.9
[2021-05-16] MEDS: MELATONIN 3 MG TAB PO SCH (21:14)
[2021-05-17] MEDS: DEXTROSE 5% 500 ML IV SCH (01:01)
[2021-05-17] MEDS: ONDANSETRON INJ 2 MG/ML 2 ML VIAL IV PRN (06:29)
[2021-05-17 06:42] LABS: Mean Corpuscular Hgb Conc 33.6 g/dL (32-36)
[2021-05-17 06:56] LABS: Hematocrit (blood only) 30.7 % (42-52); Hemoglobin 10.3 g/dL (14.0-18.0); Mean Corpuscular Hemoglobin 26.3 pg (25-34); Mean Corpuscular Volume 78.3 fL (80-100); RDW Coefficient of Variation 16.5 % (11.5-14.5); RDW Standard Deviation 47.2 fL (36.4-46.3); Red Blood Count 3.92 M/uL (4.7-6.1); White Blood Count 6.87 K/uL (4.8-10.8)
[2021-05-17 07:30] LABS: Mean Platelet Volume 10.4 fL (7.4-10.4); Platelet Count 102 K/uL (130-400); Platelet Estimate Decreased (Normal)
[2021-05-17] MEDS: INSULIN ASPART PER UNIT SC SCH ×4 (07:59→20:58)
[2021-05-17] MEDS: ZINC SULFATE 220 MG CAPSULE PO SCH ×2 (08:00→09:09)
[2021-05-17] MEDS: CHOLECALCIFEROL 5,000 UNITS 125 MCG TAB PO SCH ×2 (08:00→09:08)
[2021-05-17] MEDS: CYANOCOBALAMIN (B-12) 2,500 MCG TABLET SL SCH ×2 (08:00→09:08)
[2021-05-17] MEDS: NEPHROCAPS PO SCH ×2 (08:00→09:08)
[2021-05-17] MEDS: PYRIDOXINE HCL 50 MG TAB PO SCH ×2 (08:01→09:09)
[2021-05-17] MEDS: ADVANCED PROBIOTIC 1250 MG CAPSULE PO SCH ×2 (08:01→09:08)
[2021-05-17 08:02] LABS: Albumin Level 3.5 gm/dl (3.4-5.0); BUN Creatinine Ratio 13.5 (10-20); Calcium 6.6 mg/dl (8.5-10.1); Creatinine Clr Calc Pharmacy 13.5 ml/min; Est GFR (African American) 8.6 ml/min; Est GFR (Non-African American) 7.4 ml/min; Phosphorus 8.4 mg/dl (2.5-4.9); Potassium 3.4 mmol/L (3.5-5.1)
[2021-05-17] MEDS: amLODIPine BESYLATE 5 MG TAB PO SCH ×2 (08:04→09:07)
[2021-05-17] MEDS: cloNIDine HCL 0.1 MG TAB PO SCH ×4 (08:05→20:59)
[2021-05-17] MEDS: SEVELAMER HCL 800 MG TABLET PO SCH ×4 (08:05→16:53)
[2021-05-17] MEDS: MULTIVITAMIN TAB PO SCH ×2 (08:06→09:08)
[2021-05-17] MEDS: carvediloL 25 MG TAB PO SCH ×3 (08:06→20:59)
[2021-05-17] MEDS: PANTOprazole 40 MG TAB PO SCH ×2 (08:07→09:08)
[2021-05-17] MEDS: MUPIROCIN 2% OINT 22 GM TUBE EXT SCH ×2 (08:07→20:59)
[2021-05-17] MEDS ORDERED: ONDANSETRON INJ 2 MG/ML 2 ML VIAL IV STA (08:23)
[2021-05-17] MEDS: ATORVASTATIN 40 MG TAB PO SCH (09:07)
--- NOTE | 2021-05-17 09:34 | XRay Report ---
KUB HISTORY: Acute generalized abdominal pain with nausea and vomiting vomiting; ileus? other? COMPARISON: Chest radiograph 05/14/2021 FINDINGS: Nonobstructive bowel gas pattern. The right lateral and upper abdomen are excluded from the [id number]. The renal shadows are partially obscured by bowel gas. Vascular calcifications. No re nal calculi. No ureteral calculi. No pneumoperitoneum or pneumatosis. Degenerative changes of the spi ne, pelvis and hips. No fracture. IMPRESSION: Limited exam secondary to positioning. The bowel gas pattern appears nonobstructive. ACT 112: Negative or not required by law. The above report was generated using voice recognition software. It may contain grammatical, syntax o r spelling errors. Electronically signed by: Arun Mchugh M.D. 05/17/2021 9:32 AM
--- NOTE | 2021-05-17 12:02 | Nephrology Progress Note ---
Date of Service May 17, 2021 Assessment & Plan (1) ESRD needing dialysis: (2) Acute uremia: (3) Metabolic acidosis: (4) Epistaxis: (5) Essential hypertension: (6) Type 2 diabetes mellitus: Plan: ESRD secondary to DM nephropathy, admitted with azotemia and uremia. Has mature AVF but never had HD before as renal function was relatively stable during last nephrology visit few months ago. Started on HD urgently on admission on 05/14/2021 considering significant AG metabolic acidosis and azotemia. --dialysis treatment today for 4 hours -- Epogen 13450 units x 1 dose today. --renal vitamin --low K diet -- scheduled for outpatient dialysis starting 05/20/21Thursday a.m. at [facility] --Continue Amlodipine 10 mg daily. Admission and Anticipated Discharge Date Admission Date: May 14, 2021 Ever Luke seen this morning while he was getting dialysis, tolerating dialysis well, denies any leg cramps, dizziness or lightheadedness. Blood pressure still remained elevated however denies any headache or visual changes. Reports several episodes of nausea and vomiting. Has been having bowel movement, no abdominal pain. Review of Systems Review of Systems: Detail ROS was negative except mentioned above Physical Exam Constitutional: WD/WN, vitals as above no acute distress Respiratory: no respiratory distress Auscultation: lungs clear to auscultation bilaterally Cardiovascular: Rate/Rhythm: regular rate and regular rhythm Heart Sounds: normal S1 and normal S2 Skin: + erythema (erythema in b/l leg and thigh) Neurologic: no focal motor deficits and not confused Psychiatric: Orientation: alert and oriented x 3 Affect: euthymic affect Results & Data ([facility]) Vital Signs (Past 12 Hours) Vital Signs Temp Pulse Pulse Pulse Resp BP BP 05/17/21 10:00 74 195/102 H 05/17/21 09:40 75 181/90 H 05/17/21 09:20 73 187/91 H 05/17/21 09:11 74 183/88 H 05/17/21 08:55 36.4 C L 76 05/17/21 07:50 36.5 C 73 16 183/80 H 05/17/21 06:45 77 05/17/21 05:00 36.7 C 77 10 L 176/83 H Pulse Ox 05/17/21 10:00 05/17/21 09:40 05/17/21 09:20 05/17/21 09:11 05/17/21 08:55 05/17/21 07:50 95 05/17/21 06:45 05/17/21 05:00 96 PG Care Time/CCT Total # of Minutes Spent Total Time Spent with Patient: Total time spent is greater than 50% in coordination of care (as documented) at patient's floor/unit and/or counseling patient: Coding Level of Care Code 65959 Subseq Hosp Care Lvl 3 Diagnoses ESRD needing dialysis N18.6; Z99.2 Acute uremia N19 Metabolic acidosis E87.2 Epistaxis R04.0 Essential hypertension I10 Type 2 diabetes mellitus E11.9
--- NOTE | 2021-05-17 13:42 | Hospitalist Progress Note ---
Date of Service May 17, 2021 Assessment & Plan (1) NSVT (nonsustained ventricular tachycardia): Plan: multiple runs of such today. no symptoms. mag level low - replace IV. K level low - replace with PO K-dur. repeat K and mag tonight. troponin was checked - scantly elevated, and has only gone up slightly since the last check a few days ago. stress of hemodialysis today and low K/low mag likely contributed to NSVT today. plan to trend his troponins. echo tomorrow - check LV function. he does have multiple CAD risk factors. (2) Hypokalemia: Plan: replace with 40meq K-dur po x 1, then repeat another 20meq tonight repeat K and mag levels tonight 2nd to diarrhea, etc. (3) Hypomagnesemia: Plan: replace with IV mag sulfate repeat level tonight (4) Acute uremia: Plan: IMPROVED. Admitted with severe uremia with resulting severe metabolic acidosis. fortunately patient had AV fistula in the left arm, created 10/2020. HD initiated - first session evening of 05/14. attempts at HD 05/15 not successful. 3-hour session 05/16. additional HD session today, 2 L UF obtained. BUN/Cr improving. BMP in am. appreciate Dr Dodd's assistance. set up for [facility] on Thursday of next week; will have // schedule. cont sevelamer TID w/ meals for high phos. (5) Metabolic acidosis: Plan: 2nd to acute/chronic CKD with development of ESRD. see #1 above. improving. (6) ESRD needing dialysis: Plan: see #1 above. tolerating HD thus far. Will have HD on Thu/Thu/Thursday at [facility]. (7) CKD (chronic kidney disease): Plan: suspect he had stage 4 or 5 before moving from the [facility] to [place]. either way HD initiated day of admission 2nd to ESRD development and acute uremia. CKD is likely on the basis of diabetic nephropathy and/or HTN nephrosclerosis given the 3+ protein on ua. appreciate nephrology assistance. (8) Type 2 diabetes mellitus: Plan: a1c 7.2%. was on 2 oral agents - sulfonylurea, and januvia. both contraindicated with his ESRD. stopped both meds at admission. Had had several LOWS since admission - likely due to sulfonylurea. Finally resolved. Consider once-daily lantus at discharge. (9) Essential hypertension: Plan: severe, uncontrolled. coreg titrated from 12.5mg BID to 25mg BID. amlodipine added by Dr Dodd - 10mg daily. remains on clonidine 0.1mg TID. despite the above his BPs remain very high. Will add imur 30mg daily, first dose now. as volume status improves BPs should also improve. of note - renal artery dopplers neg for BIANKA. (10) Edema: Plan: bl venous duplex studies of legs NEGATIVE for DVT. edema will improve with HD. thigh edema also improved. (11) Bilateral thigh pain: Plan: no evidence of DVT. the edema was severe at time of admission. this edema is improving. ?cellulitis contributing as well. (12) Epistaxis: Plan: has not recurred. Cont bactroban ointment BID to both nares. saline spray frequently. (13) Thrombocytopenia: Plan: uncertain cause. TSH, B12, folate all normal. consumptive in setting of recent epistaxis? cont to trend. (14) DVT prophylaxis: Plan: if epistaxis does not recur - heparin 5000 BID (15) Cellulitis and abscess of leg: Plan: b/l legs. improved. day #4 of rocephin. likely can transition to PO abx tomorrow. (16) Hyperphosphatemia associated with renal failure: Plan: cont sevelamer TID with meals phos level improved today (17) Hypocalcemia due to chronic kidney disease: Plan: trend treat high phosphorus (18) Diarrhea: Plan: etiology uncertain. [employer] GI panel fully negative. no abd pain. uncertain if the diarrhea and the vomiting are connected or separate symptoms. he was having diarrhea at home prior to admission. vomiting started while in the hospital. wanted to obtain CT a/p today -- patient declined, concerned he couldn't complete the CT due to claustrophobia. will monitor his GI symptoms. is vomiting due to GERD? gastroparesis? related to ESRD? anxiety? other? Plan: insomnia - melatonin did not help. cautiously use xanax 0.25mg HS tonight. extensively updated by phone this evening care d/w Dr Dodd complex care coordination today; multiple bedside visits, numerous correspondence with nursing staff, etc 70 minutes today Admission and Anticipated Discharge Date Admission Date: May 14, 2021 Subjective saw patient towards the end of dialysis during HD he had 2 brief runs of NSVT on monitoring no symptoms no chest pain no dyspnea he has continued to have episodes of emesis some episodes are random - some are following meals (had breakfast, then proceeded to vomiting within 30 minutes) also blames some of the vomiting on post-nasal drip ? ate very little yesterday he admits to feeling anxious continues to not sleep well - had melatonin last night and he still did not sleep thigh discomfort improved less edema in the afternoon he had another run of NSVT - 12 beats; again no symptoms EKG obtained - my reading - NSR, RBBB, V4-V6 ST depression trop 0.08 - slightly higher than a few days ago during a 2nd visit late in the evening (1830) he reports that he had emesis after he underwent his renal artery doppler Review of Systems Review of Systems: gen - no fever, no chills, was finally able to eat dinner tonight CV - no chest pain, no orthopnea pulm - no dyspnea on exertion (took a walk in the hallway and did well with such) GI - no abd pain despite the nausea/emesis; still w/ diarrhea - still making some urine Physical Exam Physical Exam: gen - no acute distress, looks similar to yesterday neck - no JVD mouth - MMM heart - RRR, s1 s2, no murmur lungs - CTA b/l, no rales, no wheezes, better airation than a few days ago abd - soft NT ND BS+; no HSM skin - venous stasis changes b/l legs on the shins - pink skin only, no warmth, no redness, no further cellulitis; there is mild erythema b/l thighs medially - scant today, nontender to palpation; scattered areas of scabbed ulcers, abrasions, etc - unchanged - on feet, shins, etc ext - 1+ edema both thighs - improved; trace edema ankles - improved; pulses b/l feet 2+ Results & Data Results & Data ([facility]) Vital Signs (Past 12 Hours) Vital Signs Temp Pulse Pulse Pulse Resp BP BP 05/17/21 13:00 77 187/87 H 05/17/21 12:40 78 194/99 H 05/17/21 12:20 78 197/95 H 05/17/21 12:00 78 188/90 H 05/17/21 11:40 75 190/85 H 05/17/21 11:20 76 186/86 H 05/17/21 11:00 79 193/89 H 05/17/21 10:40 74 182/87 H 05/17/21 10:20 76 176/86 H 05/17/21 10:00 74 195/102 H 05/17/21 09:40 75 181/90 H 05/17/21 09:20 73 187/91 H 05/17/21 09:11 74 183/88 H 05/17/21 08:55 36.4 C L 76 05/17/21 07:50 36.5 C 73 16 183/80 H 05/17/21 06:45 77 05/17/21 05:00 36.7 C 77 10 L 176/83 H Pulse Ox 05/17/21 13:00 05/17/21 12:40 05/17/21 12:20 05/17/21 12:00 05/17/21 11:40 05/17/21 11:20 05/17/21 11:00 05/17/21 10:40 05/17/21 10:20 05/17/21 10:00 05/17/21 09:40 05/17/21 09:20 05/17/21 09:11 05/17/21 08:55 05/17/21 07:50 95 05/17/21 06:45 05/17/21 05:00 96 Laboratory Results Laboratory Results - last 24 hr 05/15/21 05/17/21 05/17/21 11:31 06:14 06:14 WBC 6.87 RBC 3.92 L Hgb 10.3 L Hct 30.7 L MCV 78.3 L MCH 26.3 MCHC 33.6 RDW Std Deviation 47.2 H RDW Coeff of Adriano 16.5 H Plt Count 102 L MPV 10.4 Platelet Estimate Decreased L Sodium 139 Potassium 3.4 L Chloride 104 Carbon Dioxide 17 L Anion Gap 18 H BUN 96 H D Creatinine 7.09 H* D Est Cr Clr Drug Dosing 13.5 Est GFR ( Amer) 8.6 Est GFR (Non-Af Amer) 7.4 BUN/Creatinine Ratio 13.5 Glucose 125 H POC Glucose Calcium 6.6 L Phosphorus 8.4 H Magnesium Troponin I Albumin 3.5 Hepatitis B Ab, Qual NON-REACTIVE 05/17/21 05/17/21 05/17/21 06:14 07:20 10:54 WBC RBC Hgb Hct MCV MCH MCHC RDW Std Deviation RDW Coeff of Adriano Plt Count MPV Platelet Estimate Sodium Potassium Chloride Carbon Dioxide Anion Gap BUN Creatinine Est Cr Clr Drug Dosing Est GFR ( Amer) Est GFR (Non-Af Amer) BUN/Creatinine Ratio Glucose POC Glucose 131 H 121 H Calcium Phosphorus Magnesium 1.6 L Troponin I Albumin Hepatitis B Ab, Qual 05/17/21 05/17/21 05/17/21 15:49 16:02 20:12 WBC RBC Hgb Hct MCV MCH MCHC RDW Std Deviation RDW Coeff of Adriano Plt Count MPV Platelet Estimate Sodium Potassium 3.2 L Chloride Carbon Dioxide Anion Gap BUN Creatinine Est Cr Clr Drug Dosing Est GFR ( Amer) Est GFR (Non-Af Amer) BUN/Creatinine Ratio Glucose POC Glucose 135 H 180 H Calcium Phosphorus Magnesium Troponin I 0.08 H* Albumin Hepatitis B Ab, Qual PG Care Time/CCT Total # of Minutes Spent Total Time Spent with Patient: Total time spent is greater than 50% in coordination of care (as documented) at patient's floor/unit and/or counseling patient: Prolonged Care Time Prolonged Care Time: Yes Total Prolonged Care Time: 70 Coding Level of Care Code 08112 Subseq Hosp Care Lvl 3 (25 - SIGNIFICANT, SEPARATELY IDENTIFIABLE ) Diagnoses Acute uremia N19 Metabolic acidosis E87.2 ESRD needing dialysis N18.6; Z99.2 CKD (chronic kidney disease) N18.9 Type 2 diabetes mellitus E11.9 Essential hypertension I10 Edema R60.9 Bilateral thigh pain M79.651; M79.652 Epistaxis R04.0 Thrombocytopenia D69.6 DVT prophylaxis Z29.9 Cellulitis and abscess of leg L03.119; L02.419 Hyperphosphatemia associated with renal failure E83.39; N19 Hypocalcemia due to chronic kidney disease E83.51; N18.9 NSVT (nonsustained ventricular tachycardia) I47.2 Hypokalemia E87.6 Hypomagnesemia E83.42 Diarrhea R19.7 Additional Codes Prolonged Care Time - Prolonged Care Time: Yes ([id number]) Time Spent (min) 70
[2021-05-17] MEDS ORDERED: amLODIPine BESYLATE 5 MG TAB PO ONE (14:00)
[2021-05-17] MEDS ORDERED: carvediloL 25 MG TAB PO ONE (14:00)
[2021-05-17] MEDS: cefTRIAXone SODIUM 2,000 MG in DEXTROSE 5% 50 ML IV SCH (14:08)
[2021-05-17] MEDS ORDERED: MAGNESIUM SULFATE / D5W 1 GM/100 ML BAG IV ONE (15:00)
--- NOTE | 2021-05-17 15:30 | Ultrasound Report ---
DOPPLER ULTRASOUND OF THE RENAL ARTERIES CLINICAL HISTORY: Hypertensive urgency. COMPARISON STUDY: No priors. TECHNIQUE: Doppler sonography of the renal arteries was performed to assess renal artery stenosis. Im ages are reviewed in the transverse and longitudinal planes. FINDINGS: The kidneys appear normal in size and echotexture. The right kidney measures 12.2 cm in length and th e left kidney measures 13.2 cm in length. There is no hydronephrosis. On the right, intrarenal arterial resistive indices range from 0.71 to 0.74. Intrarenal arterial wave forms are normal with brisk upstrokes. The right renal arterial waveform is normal, and velocities wi thin the right renal artery measure up to 35 cm/sec. The right renal vein is patent. On the left, intrarenal arterial resistive indices range from 0.60 to 0.73. Intrarenal arterial wave forms are normal with brisk upstrokes. The left renal arterial waveform is normal, and velocities wit hin the left renal artery measure up to 38 cm/sec. The left renal vein is patent. The abdominal aorta is patent. Velocities within the abdominal aorta measure up to 61 cm/s. IMPRESSION: There is no sonographic evidence of renal artery stenosis. ACT 112: Negative or not required by law. Electronically signed by: Jed Hurd M.D. 05/17/2021 3:28 PM
[2021-05-17 16:32] LABS: Potassium 3.2 mmol/L (3.5-5.1)
[2021-05-17] MEDS ORDERED: ISOSORBIDE MONO EXTENDED REL 30 MG TABCR PO ONE (16:38)
[2021-05-17] MEDS ORDERED: POTASSIUM CHLORIDE CRTAB 20 MEQ TABCR PO STA (16:40)
[2021-05-17 16:57] LABS: Troponin I 0.08 ng/ml (0-0.04)
[2021-05-17] MEDS ORDERED: POTASSIUM CHLORIDE CRTAB 20 MEQ TABCR PO ONE (20:00)
[2021-05-17] MEDS: MELATONIN 3 MG TAB PO SCH (20:58)
[2021-05-17] MEDS ORDERED: ALPRAZolam 0.25 MG TABLET PO SCH (21:00)
[2021-05-17] MEDS ORDERED: hydrALAZINE HCL 20 MG/ML VIAL IV PRN (21:27)
--- NOTE | 2021-05-17 22:48 | Electrocardiogram Report ---
Test Reason : Blood Pressure : / mmHG Vent. Rate : 073 BPM Atrial Rate : 073 BPM P-R Int : 188 ms QRS Dur : 168 ms QT Int : 496 ms P-R-T Axes : 064 -49 -23 degrees QTc Int : 546 ms Normal sinus rhythm Right bundle branch block Left anterior fascicular block Bifascicular block Abnormal ECG When compared with ECG of 14-MAY-2021 14:23, No significant change Confirmed by Nabeel Polanco ([id number]) on 05/17/2021 10:48:44 PM Referred By: REFERRED SELF Confirmed By:Nabeel Polanco
[2021-05-17 22:53] LABS: Magnesium 1.8 mg/dl (1.7-2.4); Potassium 3.3 mmol/L (3.5-5.1)
[2021-05-17 22:59] LABS: Troponin I 0.09 ng/ml (0-0.04)
[2021-05-18 03:43] LABS: Hematocrit (blood only) 32.1 % (42-52); Hemoglobin 10.3 g/dL (14.0-18.0); Mean Corpuscular Hemoglobin 25.8 pg (25-34); Mean Corpuscular Hgb Conc 32.1 g/dL (32-36); Mean Corpuscular Volume 80.3 fL (80-100); Mean Platelet Volume 9.2 fL (7.4-10.4); Platelet Count 123 K/uL (130-400); RDW Coefficient of Variation 16.5 % (11.5-14.5); RDW Standard Deviation 48.1 fL (36.4-46.3); White Blood Count 7.75 K/uL (4.8-10.8)
[2021-05-18 04:19] LABS: Albumin Level 3.3 gm/dl (3.4-5.0); BUN Creatinine Ratio 10.3 (10-20); Calcium 6.8 mg/dl (8.5-10.1); Creatinine Clr Calc Pharmacy 17.5 ml/min; Est GFR (African American) 11.8 ml/min; Est GFR (Non-African American) 10.2 ml/min; Phosphorus 5.7 mg/dl (2.5-4.9); Potassium 3.3 mmol/L (3.5-5.1)
[2021-05-18] MEDS ORDERED: POTASSIUM CHLORIDE CRTAB 20 MEQ TABCR PO STA (04:24)
[2021-05-18] MEDS: INSULIN ASPART PER UNIT SC SCH ×3 (07:55→17:22)
[2021-05-18] MEDS: SEVELAMER HCL 800 MG TABLET PO SCH ×3 (08:02→17:25)
[2021-05-18] MEDS: ATORVASTATIN 40 MG TAB PO SCH (08:03)
[2021-05-18] MEDS: amLODIPine BESYLATE 5 MG TAB PO SCH (08:03)
[2021-05-18] MEDS: carvediloL 25 MG TAB PO SCH (08:03)
[2021-05-18] MEDS: PYRIDOXINE HCL 50 MG TAB PO SCH (08:04)
[2021-05-18] MEDS: cloNIDine HCL 0.1 MG TAB PO SCH ×2 (08:04→14:04)
[2021-05-18] MEDS: ZINC SULFATE 220 MG CAPSULE PO SCH (08:04)
[2021-05-18] MEDS: CHOLECALCIFEROL 5,000 UNITS 125 MCG TAB PO SCH (08:04)
[2021-05-18] MEDS: PANTOprazole 40 MG TAB PO SCH (08:05)
[2021-05-18] MEDS: ADVANCED PROBIOTIC 1250 MG CAPSULE PO SCH (08:05)
[2021-05-18] MEDS: NEPHROCAPS PO SCH (08:05)
[2021-05-18] MEDS: MULTIVITAMIN TAB PO SCH (08:06)
[2021-05-18] MEDS: CYANOCOBALAMIN (B-12) 2,500 MCG TABLET SL SCH (08:06)
[2021-05-18] MEDS: MUPIROCIN 2% OINT 22 GM TUBE EXT SCH (08:07)
[2021-05-18] MEDS: cefTRIAXone SODIUM 2,000 MG in DEXTROSE 5% 50 ML IV SCH (08:10)
[2021-05-18] MEDS ORDERED: MAGNESIUM SULFATE / D5W 1 GM/100 ML BAG IV ONE (08:45)
[2021-05-18] MEDS ORDERED: ISOSORBIDE MONO EXTENDED REL 30 MG TABCR PO SCH (09:00)
--- NOTE | 2021-05-18 10:43 | Electrocardiogram Report ---
Test Reason : Blood Pressure : / mmHG Vent. Rate : 068 BPM Atrial Rate : 068 BPM P-R Int : 192 ms QRS Dur : 168 ms QT Int : 508 ms P-R-T Axes : 076 -16 -80 degrees QTc Int : 540 ms Normal sinus rhythm Right bundle branch block T wave abnormality, consider inferolateral ischemia Abnormal ECG When compared with ECG of 17-MAY-2021 14:19, No significant change was found Confirmed by Jorje Rankin ([id number] on 05/18/2021 10:43:24 AM Referred By: REFERRED SELF Confirmed By:Shay Rankin
--- NOTE | 2021-05-18 12:25 | Nephrology Progress Note ---
Date of Service May 18, 2021 Assessment & Plan (1) ESRD needing dialysis: Plan: ESRD attributed to DKD. AVF functioning well. First HD treatment completed 05/14/21. Completed treatment yesterday with adequate clearance and UF. Electrolytes controlled. Next anticipated dialysis is Thursday. Arrangements have been made for outpatient dialysis treatment at [facility] under the care of Dr. Dodd on Thursday. Medications are appropriately dosed for kidney dysfunction. Daily renal vitamin. (2) Essential hypertension: Plan: BP acceptable. Amlodipine continued in addition to home dosing of carvedilol and clonidine. Tolerating medications well. Volume status controlled. (3) Hyperphosphatemia associated with renal failure: Plan: Renvela 1 tab QAC. (4) Hypocalcemia due to chronic kidney disease: Plan: Vitamin D replacement will be coordinated with HD as outpatient. Continue daily D3 supplement post discharge. Renve Admission and Anticipated Discharge Date Admission Date: May 14, 2021 Subjective Nausea and vomiting overnight. Symptoms improving this AM. Otherwise, tolerated HD well. No complications with HD. Adequate clearance. UF ~2.1 L. Review of Systems Review of Systems: All systems reviewed & are unremarkable except as noted in HPI & below Gastrointestinal: + nausea Physical Exam Constitutional: WD/WN, vitals as above no acute distress Eyes: + anicteric sclerae; no conjunctival abnormality Neck: normal visual inspection and trachea midline Respiratory: no respiratory distress Auscultation: lungs clear to auscultation bilaterally Cardiovascular: Rate/Rhythm: regular rate and regular rhythm Heart Sounds: normal S1 and normal S2 Extremities: + AV fistula Musculoskeletal: Extremities: no cyanosis and no clubbing Skin: + erythema (erythema in b/l leg and thigh) Neurologic: no focal motor deficits and not confused Psychiatric: Orientation: alert and oriented x 3 Affect: euthymic affect Results & Data ([facility]) Vital Signs (Past 12 Hours) Vital Signs Temp Pulse Pulse Resp BP Pulse Ox 05/18/21 11:16 36.7 C 64 18 144/72 H 97 05/18/21 07:03 36.8 C 67 18 166/77 H 99 05/18/21 03:12 36.8 C 65 18 159/75 H 97 Laboratory Results Laboratory Results - last 24 hr 05/17/21 05/17/21 05/17/21 06:14 15:49 16:02 WBC RBC Hgb Hct MCV MCH MCHC RDW Std Deviation RDW Coeff of Adriano Plt Count MPV Sodium Potassium 3.2 L Chloride Carbon Dioxide Anion Gap BUN Creatinine Est Cr Clr Drug Dosing Est GFR ( Amer) Est GFR (Non-Af Amer) BUN/Creatinine Ratio Glucose POC Glucose 135 H Calcium Phosphorus Magnesium 1.6 L Troponin I 0.08 H* Albumin 05/17/21 05/17/21 05/18/21 20:12 22:05 03:32 WBC 7.75 RBC 4.00 L Hgb 10.3 L Hct 32.1 L MCV 80.3 MCH 25.8 MCHC 32.1 RDW Std Deviation 48.1 H RDW Coeff of Adriano 16.5 H Plt Count 123 L MPV 9.2 Sodium Potassium 3.3 L Chloride Carbon Dioxide Anion Gap BUN Creatinine Est Cr Clr Drug Dosing Est GFR ( Amer) Est GFR (Non-Af Amer) BUN/Creatinine Ratio Glucose POC Glucose 180 H Calcium Phosphorus Magnesium 1.8 Troponin I 0.09 H* Albumin 05/18/21 05/18/21 05/18/21 03:32 03:32 03:32 WBC RBC Hgb Hct MCV MCH MCHC RDW Std Deviation RDW Coeff of Adriano Plt Count MPV Sodium 137 Potassium 3.3 L Chloride 100 Carbon Dioxide 25 Anion Gap 12 H BUN 56 H D Creatinine 5.46 H* D Est Cr Clr Drug Dosing 17.5 Est GFR ( Amer) 11.8 Est GFR (Non-Af Amer) 10.2 BUN/Creatinine Ratio 10.3 Glucose 127 H POC Glucose Calcium 6.8 L Phosphorus 5.7 H Magnesium 1.8 Troponin I 0.09 H* Albumin 3.3 L 05/18/21 05/18/21 07:05 10:47 WBC RBC Hgb Hct MCV MCH MCHC RDW Std Deviation RDW Coeff of Adriano Plt Count MPV Sodium Potassium Chloride Carbon Dioxide Anion Gap BUN Creatinine Est Cr Clr Drug Dosing Est GFR ( Amer) Est GFR (Non-Af Amer) BUN/Creatinine Ratio Glucose POC Glucose 126 H 183 H Calcium Phosphorus Magnesium Troponin I Albumin PG Care Time/CCT Total # of Minutes Spent Total Time Spent with Patient: Total time spent is greater than 50% in coordination of care (as documented) at patient's floor/unit and/or counseling patient: Coding Level of Care Code 12348 Subseq Hosp Care Lvl 3 Diagnoses ESRD needing dialysis N18.6; Z99.2 Essential hypertension I10 Hyperphosphatemia associated with renal failure E83.39; N19 Hypocalcemia due to chronic kidney disease E83.51; N18.9
--- NOTE | 2021-05-18 12:31 | XCELERA ---
[id number]
--- NOTE | 2021-05-18 18:46 | Discharge Summary ---
Date of Service date of admission - May 14, 2021 date of discharge - May 18, 2021 Admission HPI Per Admitting Provider Pleasant 66yo male with CKD (stage uncertain but likely advanced), LUE AV fistula creation in 10/2020 in [place], [place], T2DM since 2003 on oral meds, and HTN presents with progressive weakness, several days of b/l nosebleeding, worsening edema with b/l thigh pain L>R, mild redness of both thighs also L>R, and a few episodes of diarrhea over the last 1-2 weeks. 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 The patient himself is retired from [employer] in the [facility]. Patient and his report worsening dyspnea, dyspnea on exertion, and fatigue over the last several weeks. He admits to not checking his BSGs but states his last HbA1c in [place] was "good" per his recollection. Principal Diagnosis 1. Acute Uremia 2. Development of ESRD with initiation of hemodialysis 3. Volume overload 2nd to #1/#2 4. Hypertension 5. Hypoglycemia 6. Type 2 diabetes Discharge Exam gen - no acute distress, awake, alert neck - no JVD mouth - MMM nose - no epistaxis heart - RRR, s1 s2, no murmur lungs - CTA b/l, no rales, no wheezes, better airation than prior exams abd - soft NT ND BS+; no HSM skin - venous stasis changes b/l legs on the shins - pink skin only, no warmth, no redness, no further cellulitis; there is mild erythema b/l thighs medially - scant today, nontender to palpation; scattered areas of scabbed ulcers, abrasions, etc - unchanged - on feet, shins, etc ext - <1+ edema both thighs - improved; no edema ankles; pulses 2+ b/l feet Discharge Data Allergies Allergy/AdvReac Type Severity Reaction Status Date / Time No Known Allergies Allergy Unverified 05/14/21 15:28 Consultations [facility] PT Diabetes Education Procedures Performed Hemodialysis x 3 sessions Ordered Studies Chest X-Ray 05/14/21 13:23 XR chest 1V portable CLINICAL HISTORY: Atypical chest pain . Shortness of breath COMPARISON STUDY: No previous studies for comparison. FINDINGS: Lung volumes are normal. No pneumothorax or pleural effusion is present. Moderate cardiomegaly is noted without evidence for pulmonary edema. No consolidation is present. Faint calcifications project over the bilateral axil la. IMPRESSION: No acute cardiopulmonary findings. Cardiomegaly. ACT 112: Negative or not required by law. Electronically signed by: Alex Lees M.D. 05/14/2021 1:44 PM Venous Doppler Study 05/14/21 17:33 BILATERAL LOWER EXTREMITY VENOUS DOPPLER CLINICAL HISTORY: b/l thigh pain, check for DVT COMPARISON STUDY: No previous studies for comparison. TECHNIQUE: Sonography of the deep venous system of the bilateral lower extremities was performed. Compression and augmentation were evaluated. FINDINGS: The bilateral common femoral, superficial femoral and popliteal veins were compressible. Augmentation was normal. Flow was shown within the deep calf vessels. IMPRESSION: No evidence of deep venous thrombus within the bilateral lower ext remities. ACT 112: Negative or not required by law. Electronically signed by: Alex Lees M.D. 05/15/2021 7:20 AM KUB X-Ray 05/17/21 08:23 KUB HISTORY: Acute generalized abdominal pain with nausea and vomiting vomiting; ileus? other? COMPARISON: Chest radiograph 05/14/2021 FINDINGS: Nonobstructive bowel gas pattern. The right lateral and upper abdomen are excluded from the [id number]. The renal shadows are partially obscured by bowel gas. Vascular calcifications. No renal calculi. No ureteral calculi. No pneumoperitoneum or pneumatosis. Degenerative changes of the spine, pelvis and hips. No fracture. IMPRESSION: Limited exam secondary to positioning. The bowel gas pattern appears nonobstructive. ACT 112: Negative or not required by law. The above report was generated using voice recognition software. It may contain grammatical, syntax or spelling errors. Electronically signed by: Arun Mchugh M.D. 05/17/2021 9:32 AM Renal Artery Duplex 05/17/21 12:02 DOPPLER ULTRASOUND OF THE RENAL ARTERIES CLINICAL HISTORY: Hypertensive urgency. COMPARISON STUDY: No priors. TECHNIQUE: Doppler sonography of the renal arteries was performed to assess renal artery stenosis. Images are reviewed in the transverse and longitudinal planes. FINDINGS: The kidneys appear normal in size and echotexture. The right kidney measures 12.2 cm in length and the left kidney measures 13.2 cm in length. There is no hydronephrosis. On the right, intrarenal arterial resistive indices range from 0.71 to 0.74. Intrarenal arterial waveforms are normal with brisk upstrokes. The right renal arterial waveform is normal, and velocities within the right renal artery measure up to 35 cm/sec. The right renal vein is patent. On the left, intrarenal arterial resistive indices range from 0.60 to 0.73. Intrarenal arterial waveforms are normal with brisk upstrokes. The left renal arterial waveform is normal, and velocities within the left renal artery measure up to 38 cm/sec. The left renal vein is patent. The abdominal aorta is patent. Velocities within the abdominal aorta measure up to 61 cm/s. IMPRESSION: There is no sonographic evidence of renal artery stenosis. ACT 112: Negative or not required by law. Electronically signed by: Jed Hurd M.D. 05/17/2021 3:28 PM Hospital Course (1) Acute uremia: IMPROVED. Admitted with severe uremia with resulting severe metabolic acidosis. fortunately patient had AV fistula in the left arm, created 10/2020. HD initiated - first session evening of 05/14. attempts at HD 05/15 not successful. 3-hour session 05/16. additional HD session today, 2 L UF obtained. BUN/Cr improving. BMP in am. appreciate Dr Dodd's assistance. set up for [facility] [facility] on Thursday of next week; will have M/W/F schedule. cont sevelamer TID w/ meals for high phos. (2) ESRD needing dialysis: see #1 above. tolerating HD thus far. Will have HD on Thu/Thu/Thursday at [facility]. (3) CKD (chronic kidney disease): suspect he had stage 4 or 5 before moving from the [facility] to [place]. either way HD initiated day of admission 2nd to ESRD development and acute uremia. CKD is likely on the basis of diabetic nephropathy and/or HTN nephrosclerosis given the 3+ protein on ua. appreciate nephrology assistance. (4) NSVT (nonsustained ventricular tachycardia): multiple runs of such today. no symptoms. mag level low - replace IV. K level low - replace with PO K-dur. repeat K and mag tonight. troponin was checked - scantly elevated, and has only gone up slightly since the last check a few days ago. stress of hemodialysis today and low K/low mag likely contributed to NSVT today. plan to trend his troponins. echo tomorrow - check LV function. he does have multiple CAD risk factors. (5) Hypokalemia: replace with 40meq K-dur po x 1, then repeat another 20meq tonight repeat K and mag levels tonight 2nd to diarrhea, etc. (6) Hypomagnesemia: replace with IV mag sulfate repeat level tonight (7) Metabolic acidosis: 2nd to acute/chronic CKD with development of ESRD. see #1 above. improving. (8) Type 2 diabetes mellitus: a1c 7.2%. was on 2 oral agents - sulfonylurea, and januvia. both contraindicated with his ESRD. stopped both meds at admission. Had had several LOWS since admission - likely due to sulfonylurea. Finally resolved. Consider once-daily lantus at discharge. (9) Essential hypertension: severe, uncontrolled. coreg titrated from 12.5mg BID to 25mg BID. amlodipine added by Dr Dodd - 10mg daily. remains on clonidine 0.1mg TID. despite the above his BPs remain very high. Will add imur 30mg daily, first dose now. as volume status improves BPs should also improve. of note - renal artery dopplers neg for BIANKA. (10) Edema: bl venous duplex studies of legs NEGATIVE for DVT. edema will improve with HD. thigh edema also improved. (11) Bilateral thigh pain: no evidence of DVT. the edema was severe at time of admission. this edema is improving. ?cellulitis contributing as well. (12) Epistaxis: has not recurred. Cont bactroban ointment BID to both nares. saline spray frequently. (13) Thrombocytopenia: uncertain cause. TSH, B12, folate all normal. consumptive in setting of recent epistaxis? cont to trend. (14) Cellulitis and abscess of leg: b/l legs. improved. day #4 of rocephin. likely can transition to PO abx tomorrow. (15) Hyperphosphatemia associated with renal failure: cont sevelamer TID with meals phos level improved today (16) Hypocalcemia due to chronic kidney disease: trend treat high phosphorus (17) Diarrhea: etiology uncertain. [facility] panel fully negative. no abd pain. uncertain if the diarrhea and the vomiting are connected or separate symptoms. he was having diarrhea at home prior to admission. vomiting started while in the hospital. wanted to obtain CT a/p today -- patient declined, concerned he couldn't complete the CT due to claustrophobia. will monitor his GI symptoms. is vomiting due to GERD? gastroparesis? related to ESRD? anxiety? other? Total Time Total Time Spent Total Time Spent (In Minutes): 60 Discharge Plan Discharge Items Patient Disposition: Home - Self-Care Reason For Visit: Nosebleeds, weakness, edema of legs, diarrhea Discharge Diagnosis: 1. Development of ESRD (end-stage renal disease) - initiation of dialysis 2. Weakness, edema, shortness of breath - due to #1 above 3. Diarrhea - uncertain cause; extensive testing for infection negative 4. Nausea, vomiting - due to #1? Reflux? Gastroparesis? Anxiety? 5. Uncontrolled hypertension - improved 6. Non-sustained ventricular tachycardia - likely due to low potassium and low magnesium, but additional testing may be needed 7. Cellulitis of legs - improving 8. Nosebleeding - resolved Activity: Resume your previous activity Non-emergency contact: Primary Care Provider, Repossessor and Community Organization Director Call non-emergency contact if: you have any medication questions, your symptoms worsen, your pain is not controlled and you have a fever Follow-up/Referrals: Kimberly Marquez CRNP [Nurse Practitioner] - (we will attempt to set you up with a GI appointment to address your diarrhea) Maggie Dodd MD [Physician] - (Report to [facility] on 05/20/21, as scheduled for your next dialysis treatment ) Jorje Rankin MD [Physician] - (See Dr Rankin this coming week for your heart; we will be contacting you with an appointment date and time) PCP,NO [Physician] - (We will make an appointment for you to establish with a new primary care provider. ) Diet: Carb Consistent or DM2 and Dialysis Renal Fluids: 1500ml (6 cups) Addtl Attending Provider Instructions: Mr Zee, You were treated for the problems listed above in "discharge diagnoses." Most of your symptoms and how you felt at time of admission were due to the development of "end stage renal disease." This is when your chronic kidney disease worsens to the point of needing dialysis. When the kidneys fail people take on excess fluid which leads to shortness of breath, swelling of the legs, and abdominal swelling. Dr Maggie Dodd, [facility], was consulted and she managed your dialysis while here. You had 3 treatments during your stay. Your swelling, your breathing, and your lab work improved. You have been set up for dialysis on 05/20/21 (see below). Recommendations - 1. For your kidney disease - * take nephrocaps (renalcaps) 1 cap daily * take sevelamer 1 tablet each with breakfast, lunch, and dinner * limit total fluid intake to about 1500cc/day * protect your left arm fistula at all times 2. For your diabetes - * check your blood sugar every morning upon awakening * check your blood sugar at one other time during the daytime; for instance, on 1 day check it at bedtime; on another day check it before dinner; and so forth * be sure to STOP your 2 oral diabetes medications (glimepiride & januvia) * you may need insulin for your diabetes but we will try to control it with diet for now 3. For cellulitis/skin infection of legs - * cefdinir antibiotic as follows - * 300mg x 1 on Thursday, 05/19 * 300mg x 1 AFTER dialysis on Thursday, 05/20 * 300mg x 1 AFTER dialysis on Thursday, 05/22 4. During your stay you had several brief runs of "nonsustained ventricular tachycardia." The episodes only lasted a few seconds, and you did not have any apparent symptoms. These may have occurred due to the low potassium and low magnesium you had while here. We are making a referral to [facility], Dr Jorje Rankin, and this appointment will likely occur this week. You may need additional testing for your heart. 5. Diarrhea - I am uncertain what has been causing this. A large infection panel to exclude viruses and bacteria was fully negative. I would like for you to see [facility] to address this issue. 6. Vomiting - like #5 I am also uncertain what the primary limb driver of this was. It is possible that it was all due to your kidney troubles and the initiation of dialysis. It did finally stop on 3/18/22. 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 If you continue to have problems the GI doctors can run some additional tests. 7. Nosebleeding - purchase Vaseline ointment and place in both nostrils at bedtime. This will moisten your nose through the night. Use nasal saline spray during the day as needed. Would do both for about 1 week then try stopping. 8. High blood pressure - we have added the following medications - * isosorbide mononitrate - 30mg once daily * amlodipine 5mg twice daily 9. For possible reflux disease take pantoprazole 40mg once daily. It is best to take it when you first wake up in the morning. Follow-up - see separate section Return to [facility] if - * you have fevers over 100 degrees * you have worsening shortness of breath * you have chest pains * you have severe dizziness or lightheadedness * any other concerns It was our pleasure to care for you at [facility]! Best wishes, Dr Zachary Urbano Tone Artist Apprentice Provider Instructions: You have been set up with outpatient dialysis at [facility] in [place]. They are located at [address] [place] [address] in [place]. Your first treatment is scheduled for Thursday, May 20, 2021 at 05:55am. Please arrive at 05:30am. Your tentative schedule will be every Thursday, Thursday, Thursday at 05:55am. Please call [facility] if you have any questions about your appointment ([phone]). Pending Studies at Discharge: No Stand-Alone Forms: My [facility], Smoking Cessation Medications and DC Order Prescriptions: New sevelamer HCl [Renagel] 800 mg Tablet 800 mg PO TIDM Qty: 90 RF: 2 isosorbide mononitrate 30 mg Tablet Extended Release 24 Hr 30 mg PO QAM Qty: 30 RF: 2 Renal Caps 1 mg Capsule 1 cap PO QAM Qty: 30 RF: 2 (DME) OneTouch Verio test strips Strip See Rx Instructions .Route Qty: 100 RF: 2 (DME) lancets [OneTouch Delica Lancets] 33 gauge misc See Rx Instructions .Route Qty: 100 RF: 2 cefdinir 300 mg capsule 300 mg PO DIRECTED Qty: 3 RF: 0 amlodipine 5 mg tablet 5 mg PO BID Qty: 60 RF: 2 pantoprazole [Protonix] 40 mg tablet,delayed release (DR/EC) 40 mg PO QAM Qty: 30 RF: 1 Continued atorvastatin 40 mg tablet 40 mg PO DAILY RF: 0 clonidine HCl 0.1 mg tablet 0.1 mg PO TID RF: 0 carvedilol 12.5 mg tablet 12.5 mg PO BID RF: 0 multivitamin [Multiple Vitamins] Tablet 1 tab PO DAILY RF: 0 Procrit 10,000 unit/mL solution 10,000 unit subcut WK RF: 0 aspirin 81 mg Tablet,Chewable 81 mg PO DAILY RF: 0 Discontinued Lokelma 10 gram powder in packet 10 g PO QPM RF: 0 Januvia 50 mg tablet 50 mg PO DAILY RF: 0 glimepiride 2 mg tablet 2 mg PO AMPM RF: 0 furosemide 40 mg tablet 40 mg PO QAM RF: 0 Vision Multivitamin Tablet 1 tab PO DAILY RF: 0 pyridoxine (vitamin B6) [Vitamin B-6] 100 mg Tablet 100 mg PO DAILY RF: 0 B12 Active 1,000 mcg Tablet,Chewable 2,500 mcg PO DAILY RF: 0 ascorbic acid (vitamin C) 1,000 mg Tablet 1 g PO DAILY RF: 0 cholecalciferol (vitamin D3) 125 mcg (5,000 unit) Tablet 125 mcg PO DAILY RF: 0 milk thistle 175 mg Tablet 175 mg PO DAILY RF: 0 zinc 50 mg Tablet 50 mg PO DAILY RF: 0 Veltassa 8.4 gram powder in packet 8.4 g PO DAILY RF: 0 metolazone 5 mg tablet 5 mg PO DAILY RF: 0 Discharge Orders: Discharge Order (Routine); Ordered 05/18/21 Ordered By: Giovanni Simons/Other Patient Handouts: High Blood Sugar (Hyperglycemia), Hypoglycemia (Low Blood Sugar), Diabetes: Meal Planning, Understanding Type 2 Diabetes Admission Data Admit Date/Time: 05/14/21 17:18 Attending Provider: Giovanni Sharma Admit Provider: Giovanni Sharma Primary Care Provider: Daniel Carlson Other Providers: Maggie Dodd ; Giovanni Sharma Other Interventions: Discharge Summary Assessment (RN) Last Done: 05/18/21 19:01 Coding Diagnoses NSVT (nonsustained ventricular tachycardia) I47.2 Hypokalemia E87.6 Hypomagnesemia E83.42 Acute uremia N19 Metabolic acidosis E87.2 ESRD needing dialysis N18.6; Z99.2 CKD (chronic kidney disease) N18.9 Type 2 diabetes mellitus E11.9 Essential hypertension I10 Edema R60.9 Bilateral thigh pain M79.651; M79.652 Epistaxis R04.0 Thrombocytopenia D69.6 Cellulitis and abscess of leg L03.119; L02.419 Hyperphosphatemia associated with renal failure E83.39; N19 Hypocalcemia due to chronic kidney disease E83.51; N18.9 Diarrhea R19.7
== END 2021-05-18 19:15 | disposition home or self-care (01) | DRG 683 ==
LOC: ED 12:42 → 2S 17:18